=== PATIENT | female | born 1990 | race Caucasian/White ===

== ENCOUNTER 2018-06-23 14:45 | Emergency (ER) | payer OTHER, SELFPAY ==
[2018-06-23] MEDS ORDERED: NA CHLORIDE 0.9% 2,000 ML ONE (15:26)
[2018-06-23 15:32] LABS: Absolute Lymphocytes (CBC) 3.7 K/uL (0.7-4.9); Absolute Monocytes 0.4 K/uL (0.1-1.3); Absolute Neutrophil 6.1 K/uL (1.8-8.0); Basophils % 0.5 % (0-1.3); Eosinophils % 0.7 % (0-4.4); Lymphocytes % 35.8 % (15.3-44.8); MCV 96.7 fL (80-100); MPV 7.5 fL (7.6-11.3); Monocytes % 4.3 % (3.3-12.3); RBC Red Blood Cell Count 4.24 M/uL (3.86-4.86)
[2018-06-23 15:45] LABS: Protime INR 1.07
[2018-06-23 15:50] LABS: ALT/SGPT 25 U/L (12-78); AST/SGOT 14 U/L (15-37); Alkaline Phosphatase 75 U/L (45-117); BUN Blood Urea Nitrogen 9 mg/dL (7-18); Bicarbonate 26 mmol/L (21-32); Bilirubin Direct 0.1 mg/dL (0-0.2); Bilirubin Total 0.4 mg/dL (0.2-1.0); CKMB Creatine Kinase MB < 1.0 ng/mL (0.3-3.6); Creatine Phosphokinase 111 U/L (26-192); Glucose Level 85 mg/dL (74-106); Lipase 70 U/L (73-393); Magnesium 2.1 mg/dL (1.8-2.4); Potassium 3.8 mmol/L (3.5-5.1); Protein, Total 7.8 g/dL (6.4-8.2); Sodium Level 142 mmol/L (136-145); Troponin (Emerg Dept Use Only) < 0.02 ng/mL (0.0-0.045)
--- NOTE | 2018-06-23 17:24 | ER ---
Nurse's Notes [facility] Name: Ana Maria Robin Age: 27 yrs Sex: Female : 1990 Arrival Date: 06/23/2018 Time: 14:50 Bed 25 Private MD: Diagnosis: Syncope and collapse;Vomiting, unspecified;Diarrhea, unspecified Presentation: 06/23 14:51 Presenting complaint: EMS states: pt has been feeling ill for a few days with vomiting tl3 and diarrhea yesterday, went to work today started feeling dizzy and weak, had a syncopal episode, fell and hit head, + LOC for a few seconds, woke with headache, states it feels like it is behind her eyes, vomited once s/p incident. Transition of care: patient was not received from another setting of care. Onset of symptoms was June 20, 2018 at 15:00. Risk Assessment: Do you want to hurt yourself or someone else? Patient reports no desire to harm self or others. Initial Sepsis Screen: Does the patient meet any 2 criteria? No. Patient's initial sepsis screen is negative. Does the patient have a suspected source of infection? No. Patient's initial sepsis screen is negative. Care prior to arrival: IV initiated. 18 GA, in the right antecubital area. 14:51 Method Of Arrival: EMS: [facility] tl3 14:51 Acuity: HELADIO 3 tl3 Triage Assessment: 14:55 General: Appears uncomfortable, well groomed, well developed, well nourished, Behavior tl3 is calm, cooperative, appropriate for age. Pain: Complains of pain in Headache. EENT: Reports pain in behind eyes. Neuro: Level of Consciousness is awake, alert, obeys commands, Oriented to person, place, time, situation, Appropriate for age Reports dizziness, since yesterday weakness since yesterday. Cardiovascular: Patient's skin is warm and dry. Respiratory: Airway is patent Respiratory effort is even, unlabored, Respiratory pattern is regular, symmetrical. GI: Reports diarrhea, vomiting, since yesterday. : No signs and/or symptoms were reported regarding the genitourinary system. Derm: slight swelling above left eyebrow. 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 It has been more than one year since last vaccine. - Social history:: Smoking status: unknown. - Ebola Screening: : No symptoms or risks identified at this time. Screenin:59 Abuse screen: Denies threats or abuse. Nutritional screening: No deficits noted. tl3 Tuberculosis screening: No symptoms or risk factors identified. Fall Risk Fall in past 12 months (25 points). Assessment: 14:59 Reassessment: No changes from previously documented assessment. tl3 17:09 Reassessment: Patient appears in no apparent distress at this time. No changes from tl3 previously documented assessment. Patient and/or family updated on plan of care and expected duration. Pain level reassessed. Patient is alert, oriented x 3, equal unlabored respirations, skin warm/dry/pink. pt in no distress, unable to provide urine sample. 17:43 Reassessment: Patient appears in no apparent distress at this time. No changes from tl3 previously documented assessment. Patient and/or family updated on plan of care and expected duration. Pain level reassessed. Patient is alert, oriented x 3, equal unlabored respirations, skin warm/dry/pink. 17:45 Cardiovascular: Rhythm is regular. tl3 Vital Signs: 14:55 BP 126 / 82; Pulse 59; Resp 18; Temp 98.6(O); Pulse Ox 98% ; tl3 17:09 BP 119 / 83; Pulse 75; Resp 18; Pulse Ox 100% on R/A; tl3 17:43 BP 128 / 78; Pulse 59; Resp 18; Pulse Ox 100% on R/A; tl3 ED Course: 14:50 Patient arrived in ED. tl3 14:54 Triage completed. tl3 14:55 Arm band placed on right wrist. tl3 14:59 Patient has correct armband on for positive identification. Bed in low position. Call tl3 light in reach. Side rails up X 1. Pulse ox on. NIBP on. Warm blanket given. 14:59 No provider procedures requiring assistance completed. Inserted saline lock: 20 gauge tl3 in left antecubital area, using aseptic technique. Blood collected. Missed attempt(s): 20 gauge Bleeding controlled, band aid applied, catheter tip intact. 15:00 Lucero Durant FNP-C [facility]. snw 15:00 Shahzad Hogan MD is Attending Physician. snw 16:05 Nova Black, RN is Primary Nurse. tl3 17:43 IV discontinued, intact, bleeding controlled, No redness/swelling at site. Pressure tl3 dressing applied. Administered Medications: 15:24 Drug: NS 0.9% 2000 ml Route: IV; Rate: 1 bolus; Site: left antecubital; Delivery: tl3 Primary tubing; 17:44 Follow up: IV Status: Completed infusion; IV Intake: 2000ml tl3 Point of Care Testing: Blood Glucose: 14:30 Blood Glucose: 76 mg/dL; tl3 Ranges: Intake: 17:44 IV: 2000ml; Total: 2000ml. tl3 Outcome: 17:23 Discharge ordered by . snw 17:43 Discharged to home ambulatory. tl3 17:43 Condition: improved 17:43 Discharge instructions given to patient, Instructed on discharge instructions, medication usage, Demonstrated understanding of instructions, follow-up care, medications, Prescriptions given X 1. 17:46 Patient left the ED. tl3 Signatures: Lucero Durant FNP-C CEMENT AND CONCRETE PLANT WORKER-Csnw Nova Black, RN RN tl3
--- NOTE | 2018-06-23 17:24 | EDPHYS ---
Physician Documentation [facility] Name: Ana Maria Robin Age: 27 yrs Sex: Female : 1990 Arrival Date: 06/23/2018 Time: 14:50 Bed 25 Private MD: ED Physician Shahzad Hogan HPI: 06/23 17:21 This 27 yrs old Female presents to ER via EMS with complaints of Syncope. snw 17:21 The patient has experienced syncope, collapsed. Onset: The symptoms/episode snw began/occurred suddenly, today. Duration: This was a single episode, that lasted an unknown period of time. Context: the episode(s) was witnessed, by co-worker(s), occurred at work, occurred while the patient was standing, Just prior to the episode the patient experienced lightheadedness. Associated injury: The patient did not suffer any apparent associated injury. Associated signs and symptoms: The patient has no apparent associated signs or symptoms. Current symptoms: Currently, the patient is not experiencing any symptoms. It is unknown whether or not the patient has had similar symptoms in the past. It is unknown whether or not the patient has recently seen a physician. 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 It has been more than one year since last vaccine. - Social history:: Smoking status: unknown. - Ebola Screening: : No symptoms or risks identified at this time. ROS: 17:20 Eyes: Negative for injury, pain, redness, and discharge, ENT: Negative for injury, snw pain, and discharge, Neck: Negative for injury, pain, and swelling, Cardiovascular: Negative for chest pain, palpitations, and edema, Respiratory: Negative for shortness of breath, cough, wheezing, and pleuritic chest pain. 17:20 Back: Negative for injury and pain, : Negative for injury, bleeding, discharge, and swelling, MS/Extremity: Negative for injury and deformity, Skin: Negative for injury, rash, and discoloration, Neuro: Negative for headache, weakness, numbness, tingling, and seizure, Psych: Negative for depression, anxiety, suicide ideation, homicidal ideation, and hallucinations. 17:20 Constitutional: Positive for malaise, poor PO intake. 17:20 Abdomen/GI: Positive for nausea, vomiting, and diarrhea. Exam: 17:19 Constitutional: This is a well developed, well nourished patient who is awake, alert, snw and in no acute distress. Head/Face: Normocephalic, atraumatic. Eyes: Pupils equal round and reactive to light, extra-ocular motions intact. Lids and lashes normal. Conjunctiva and sclera are non-icteric and not injected. Cornea within normal limits. Periorbital areas with no swelling, redness, or edema. ENT: Nares patent. No nasal discharge, no septal abnormalities noted. Tympanic membranes are normal and external auditory canals are clear. Oropharynx with no redness, swelling, or masses, exudates, or evidence of obstruction, uvula midline. Mucous membranes moist. Neck: Trachea midline, no thyromegaly or masses palpated, and no cervical lymphadenopathy. Supple, full range of motion without nuchal rigidity, or vertebral point tenderness. No Meningismus. Chest/axilla: Normal chest wall appearance and motion. Nontender with no deformity. No lesions are appreciated. Cardiovascular: Regular rate and rhythm with a normal S1 and S2. No gallops, murmurs, or rubs. Normal PMI, no JVD. No pulse deficits. Respiratory: Lungs have equal breath sounds bilaterally, clear to auscultation and percussion. No rales, rhonchi or wheezes noted. No increased work of breathing, no retractions or nasal flaring. Abdomen/GI: Soft, non-tender, with hyperactive bowel sounds. No distension or tympany. No guarding or rebound. No evidence of tenderness throughout. Back: No spinal tenderness. No costovertebral tenderness. Full range of motion. Skin: Warm, dry with normal turgor. Normal color with no rashes, no lesions, and no evidence of cellulitis. MS/ Extremity: Pulses equal, no cyanosis. Neurovascular intact. Full, normal range of motion. Neuro: Awake and alert, GCS 15, oriented to person, place, time, and situation. Cranial nerves II-XII grossly intact. Motor strength 5/5 in all extremities. Sensory grossly intact. Cerebellar exam normal. Normal gait. Psych: Awake, alert, with orientation to person, place and time. Behavior, mood, and affect are within normal limits. Vital Signs: 14:55 BP 126 / 82; Pulse 59; Resp 18; Temp 98.6(O); Pulse Ox 98% ; tl3 17:09 BP 119 / 83; Pulse 75; Resp 18; Pulse Ox 100% on R/A; tl3 17:43 BP 128 / 78; Pulse 59; Resp 18; Pulse Ox 100% on R/A; tl3 MDM: 15:21 Patient medically screened. snw 17:24 Data reviewed: vital signs, nurses notes. Data interpreted: Pulse oximetry: on room air snw is 100 %. Interpretation: normal. Counseling: I had a detailed discussion with the patient and/or guardian regarding: the historical points, exam findings, and any diagnostic results supporting the discharge/admit diagnosis, lab results, the need for outpatient follow up, for definitive care, to return to the emergency department if symptoms worsen or persist or if there are any questions or concerns that arise at home. Special discussion: Based on the history and exam findings, there is no indication for further emergent testing or inpatient evaluation. I discussed with the patient/guardian the need to see the primary care provider for further evaluation of the symptoms. 06/23 15:01 Order name: Basic Metabolic Panel [facility] 06/23 15:01 Order name: CBC with Diff [facility] 06/23 15:01 Order name: Ckmb [facility] 06/23 15:01 Order name: CPK [facility] 06/23 15:01 Order name: Hepatic Function; Complete Time: 17:19 [facility] 06/23 15:01 Order name: Lipase; Complete Time: 17:19 [facility] 06/23 15:01 Order name: Magnesium; Complete Time: 17:19 [facility] 06/23 15:01 Order name: Protime (+inr); Complete Time: 17:19 [facility] 06/23 15:01 Order name: Ptt, Activated; Complete Time: 17:19 [facility] 06/23 15:01 Order name: Troponin (emerg Dept Use Only); Complete Time: 17:19 [facility] 06/23 15:02 Order name: Basic Metabolic Panel; Complete Time: 17:19 EDMS 06/23 15:02 Order name: CBC with Automated Diff; Complete Time: 15:40 EDMS 06/23 15:02 Order name: CKMB Creatine Kinase MB; Complete Time: 17:19 EDMS 06/23 15:03 Order name: Creatine Phosphokinase; Complete Time: 17:19 EDMS 06/23 15:01 Order name: EKG; Complete Time: 15:03 tl3 06/23 15:01 Order name: Cardiac monitoring; Complete Time: 15:24 tl3 06/23 15:01 Order name: EKG - Nurse/Tech; Complete Time: 15:24 tl3 06/23 15:01 Order name: IV Saline Lock; Complete Time: 15: tl3 06/23 15:01 Order name: Labs collected and sent; Complete Time: 15:01 tl3 06/23 15:01 Order name: NPO; Complete Time: 15:02 tl3 06/23 15:01 Order name: O2 Per Protocol; Complete Time: 15: 3 06/23 15:01 Order name: O2 Sat Monitoring; Complete Time: 15:01 tl3 Administered Medications: 15:24 Drug: NS 0.9% 2000 ml Route: IV; Rate: 1 bolus; Site: left antecubital; Delivery: tl3 Primary tubing; 17:44 Follow up: IV Status: Completed infusion; IV Intake: 2000ml tl3 Point of Care Testing: Blood Glucose: 14:30 Blood Glucose: 76 mg/dL; tl3 Ranges: Critical Glucose Levels:Adult <50 mg/dl or >400 mg/dl <40 mg/dl or >180 mg/dl Disposition: 18:18 Co-signature as Attending Physician, Shahzad Hogan MD I agree with the assessment and kdr plan of care. Disposition: 06/23/18 17:23 Discharged to Home. Impression: Syncope and collapse, Vomiting, unspecified, Diarrhea, unspecified. - Condition is Stable. - Discharge Instructions: Food Choices to Help Relieve Diarrhea, Adult, Diarrhea, Adult, Nausea and Vomiting, Adult, Syncope, Rehydration, Adult. - Prescriptions for Bentyl 20 mg Oral Tablet - take 1 tablet by ORAL route every 6 hours As needed; 20 tablet. - Work release form, Medication Reconciliation Form, Thank You Letter, Antibiotic Education, Prescription Opioid Use form. - Follow up: Private Physician; When: 2 - 3 days; Reason: Recheck today's complaints, Continuance of care, Re-evaluation by your physician. Follow up: Emergency Department; When: As needed; Reason: Worsening of condition. Signatures: Dispatcher [employer] EDShahzad Lopes MD MD [facility] Lucero Durant, RECEIVING AND PROCESSING SUPERVISOR-C RECEIVING AND PROCESSING SUPERVISOR-Csnw Nova Black, RN RN tl3 Corrections: (The following items were deleted from the chart) 17:46 17:23 06/23/2018 17:23 Discharged to Home. Impression: Syncope and collapse; Vomiting, tl3 unspecified; Diarrhea, unspecified. Condition is Stable. Forms are Medication Reconciliation Form, Thank You Letter, Antibiotic Education, Prescription Opioid Use. Follow up: Private Physician; When: 2 - 3 days; Reason: Recheck today's complaints, Continuance of care, Re-evaluation by your physician. Follow up: Emergency Department; When: As needed; Reason: Worsening of condition. snw
--- NOTE | 2018-06-24 06:08 | EKG ---
Test Date: 2018-06-23 Test Time: 15:12:58 Electroplating Worker: TL MEASUREMENT RESULTS: Intervals: Rate: 59 OR: 150 QRSD: 82 QT: 408 QTc: 403 Salix: P: 56 OR: 150 QRS: 32 T: -2 INTERPRETIVE STATEMENTS: Sinus bradycardia with sinus arrhythmia Otherwise normal ECG No previous ECG available for comparison Electronically Signed On 06-24-18 06:08:23 CAR BLOCKER by Vitor Lutz
== END 2018-06-23 17:46 | disposition home or self-care (01) ==
LOC: ER 14:45
DX: R55 Syncope and collapse (principal); R11.10 Vomiting, unspecified; R19.7 Diarrhea, unspecified; R00.1 Bradycardia, unspecified
CPT/HCPCS: 36415; 80048; 80076; 82550; 82553; 82962; 83690; 83735; 84484; 85025; 85610; 85730; 93005; 96360; 96361; 99284; J7030

== ENCOUNTER 2018-10-07 18:34 | Emergency (ER) | payer SELFPAY ==
--- OUTSIDE RECORDS SUMMARY | 2018-10-07 18:36 | XMS REPORT ---
:1990 Author Organization [facility] Address [address] [place] [address] Dr. Tran [address] [place] [id number] Care Team Providers Name Role Phone Unavailable Unavailable Unavailable Problems This patient has no known problems. Allergies, Adverse Reactions, Alerts This patient has no known allergies or adverse reactions. Medications This patient has no known medications.
[2018-10-07 20:35] LABS: Absolute Lymphocytes (CBC) 3.9 K/uL (0.7-4.9); Absolute Monocytes 0.7 K/uL (0.1-1.3); Absolute Neutrophil 7.9 K/uL (1.8-8.0); Basophils % 0.7 % (0-1.3); Eosinophils % 0.5 % (0-4.4); Hematocrit 39.3 % (36.0-45.0); Lymphocytes % 30.6 % (15.3-44.8); MPV 7.3 fL (7.6-11.3); Monocytes % 5.7 % (3.3-12.3); RBC Red Blood Cell Count 4.08 M/uL (3.86-4.86)
[2018-10-07] MEDS ORDERED: KETOROLAC 30 MG/ML INJ ONE (20:37)
[2018-10-07] MEDS ORDERED: NA CHLORIDE 0.9% 1,000 ML ONE (20:37)
[2018-10-07] MEDS ORDERED: ONDANSETRON 4 MG/2 ML VIAL ONE (20:37)
[2018-10-07 20:54] LABS: ALT/SGPT 22 U/L (12-78); AST/SGOT 11 U/L (15-37); Albumin 3.4 g/dL (3.4-5.0); Alkaline Phosphatase 73 U/L (45-117); BUN Blood Urea Nitrogen 14 mg/dL (7-18); Bicarbonate 24 mmol/L (21-32); Bilirubin Direct < 0.1 mg/dL (0-0.2); Bilirubin Total 0.3 mg/dL (0.2-1.0); Glucose Level 121 mg/dL (74-106); Lipase 55 U/L (73-393); Potassium 3.8 mmol/L (3.5-5.1); Protein, Total 7.1 g/dL (6.4-8.2); Sodium Level 142 mmol/L (136-145)
--- NOTE | 2018-10-07 21:01 | RAD REPORT ---
EXAM DESCRIPTION: CT - Stone Protocol - 10/07/2018 8:49 pm CLINICAL HISTORY: Flank pain. ABD PAIN COMPARISON: Abdomen Pelvis W Contrast dated 12/13/2016 TECHNIQUE: Axial images were obtained without oral or IV contrast. Lack of contrast limits solid org an and vascular assessment. The [id number] spans the entirety of the system partially obscuring uppermost abdomen and lung bases. Coronal reformatted images were obtained and reviewed. All CT scans are performed using dose optimization technique as appropriate and may include automated exposure control or mA/KV adjustment according to patient size. FINDINGS: The lower lung mendoza are clear. Imaged portions of the liver and spleen show no suspicious findings on non-contrast imaging. The panc reas and adrenal glands are normal. No pathologic lymphadenopathy in the abdomen or pelvis. Punctate calculus is present in the left kidney without hydronephrosis. Elsewhere, no significant sto ne or hydronephrosis identified. No bowel obstruction, free air, free fluid or abscess. Normal appendix noted. No significant bony abnormality. IMPRESSION: Punctate calculus mid pole left kidney without hydronephrosis.
[2018-10-07 21:52] LABS: Urine Blood TRACE (NEG); Urine Glucose NEGATIVE (NEG); Urine Protein NEGATIVE (NEG); Urine Specific Gravity 1.025 (1.005-1.030)
--- NOTE | 2018-10-07 22:07 | ER ---
Nurse's Notes [facility] Name: Ana Maria Robin Age: 28 yrs Sex: Female : 1990 Arrival Date: 10/07/2018 Time: 18:35 Bed 20 Private MD: Diagnosis: Low back pain;Lower abdominal pain, unspecified Presentation: 10/07 19:11 Presenting complaint: Patient states: right flank, right lower abd pain since midnight. ak1 Transition of care: patient was not received from another setting of care. Onset of symptoms was October 06, 2018. Risk Assessment: Do you want to hurt yourself or someone else? Patient reports no desire to harm self or others. Initial Sepsis Screen: Does the patient meet any 2 criteria? No. Patient's initial sepsis screen is negative. Does the patient have a suspected source of infection? No. Patient's initial sepsis screen is negative. Care prior to arrival: None. 19:11 Method Of Arrival: Ambulatory ak1 19:11 Acuity: HELADIO 3 ak1 Triage Assessment: 19:11 General: Appears in no apparent distress. Behavior is calm, cooperative. Pain: ak1 Complains of pain in posterior aspect of right lateral abdomen and right lower quadrant. EENT: No signs and/or symptoms were reported regarding the EENT system. Neuro: No deficits noted. Cardiovascular: No deficits noted. Respiratory: No deficits noted. GI: Abdomen is round non-distended. : Reports pain in right flank(s). Derm: No signs and/or symptoms reported regarding the dermatologic system. Musculoskeletal: No signs and/or symptoms reported regarding the musculoskeletal system. 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 - Social history:: Smoking status: Patient uses tobacco products, smokes one-half pack cigarettes per day. - Ebola Screening: : No symptoms or risks identified at this time. Screenin:44 Abuse screen: Denies threats or abuse. Nutritional screening: No deficits noted. tl2 Tuberculosis screening: No symptoms or risk factors identified. Fall Risk None identified. Assessment: 20:30 General: Appears in no apparent distress. uncomfortable, Behavior is calm, cooperative, tl2 appropriate for age, restless. Pain: Complains of pain in right flank Pain radiates to right lower quadrant Pain currently is 8 out of 10 on a pain scale. Quality of pain is described as sharp, Pain began 1 day ago. Neuro: Level of Consciousness is awake, alert, obeys commands, Oriented to person, place, time, situation. Cardiovascular: Denies chest pain. Respiratory: Airway is patent Respiratory effort is even, unlabored, Respiratory pattern is regular, symmetrical. GI: Bowel sounds present X 4 quads. Abd is soft and non tender Reports nausea. : Reports pain in right flank(s), lower quadrant(s) Denies burning with urination, urinary frequency, urgency. Derm: Skin is pink, warm \T\ dry. 21:41 Reassessment: Patient appears in no apparent distress at this time. Patient and/or tl2 family updated on plan of care and expected duration. Pain level reassessed. Patient is alert, oriented x 3, equal unlabored respirations, skin warm/dry/pink. Patient states feeling better. 22:23 Reassessment: Patient appears in no apparent distress at this time. Patient and/or tl2 family updated on plan of care and expected duration. Pain level reassessed. Patient is alert, oriented x 3, equal unlabored respirations, skin warm/dry/pink. pt verbalized understanding of discharge instructions, need for follow up and prescription usage Patient states feeling better. Vital Signs: 19:10 BP 137 / 91; Pulse 99; Resp 16; Temp 97.9(TE); Pulse Ox 99% on R/A; Weight 108.86 kg ak1 (R); Height 5 ft. 6 in. (167.64 cm) (R); Pain 9/10; 21:41 BP 100 / 63; Pulse 73; Resp 18; Pulse Ox 99% on R/A; tl2 22:23 BP 100 / 67; Pulse 72; Resp 18; Pulse Ox 99% on R/A; tl2 19:10 Body Mass Index 38.74 (108.86 kg, 167.64 cm) ak1 ED Course: 18:35 Patient arrived in ED. as 19:11 Triage completed. ak1 19:11 Arm band placed on Patient placed in waiting room. ak1 19:57 Norris Adkins MD is Attending Physician. tw4 20:07 Neisha Abraham RN is Primary Nurse. tl2 20:20 Inserted saline lock: 22 gauge in right antecubital area, using aseptic technique. tl2 Blood collected. 20:44 Patient has correct armband on for positive identification. Placed in gown. Bed in low tl2 position. Call light in reach. Side rails up X 1. 20:49 CT Stone Protocol In Process Unspecified. EDMS 20:50 CT completed. Patient tolerated procedure well. Patient moved back from CT. kw1 22:23 No provider procedures requiring assistance completed. tl2 22:25 IV discontinued, intact, bleeding controlled, No redness/swelling at site. Pressure tl2 dressing applied. Administered Medications: 20:32 Drug: Zofran 4 mg Route: IVP; Site: right antecubital; tl2 21:00 Follow up: Response: No adverse reaction tl2 20:32 Drug: TORadol 30 mg Route: IVP; Site: right antecubital; tl2 21:00 Follow up: Response: No adverse reaction; Pain is decreased tl2 20:33 Drug: NS 0.9% 1000 ml Route: IV; Rate: 1 bolus; Site: right antecubital; tl2 22:26 Follow up: IV Status: Completed infusion; IV Intake: 500ml tl2 Intake: 22:26 IV: 500ml; Total: 500ml. tl2 Outcome: 22:06 Discharge ordered by . tw4 22:25 Discharged to home ambulatory, with family. tl2 22:25 Condition: stable 22:25 Discharge instructions given to patient, family, Instructed on discharge instructions, follow up and referral plans. medication usage, Demonstrated understanding of instructions, follow-up care, medications, Prescriptions given X 1. 22:27 Patient left the ED. tl2 Signatures: Dispatcher [employer] EDMS Marylou Jenkins Amber RN RN ak1 Neisha Abraham RN RN tl2 Julia Navarrete kw1 Norris Adkins MD MD tw4 Corrections: (The following items were deleted from the chart) 22:25 20:30 Inserted saline lock: 22 gauge in right antecubital area, using aseptic tl2 technique. Blood collected. tl2
--- NOTE | 2018-10-07 22:07 | EDPHYS ---
Physician Documentation [facility] Name: Ana Maria Robin Age: 28 yrs Sex: Female : 1990 Arrival Date: 10/07/2018 Time: 18:35 Bed 20 Private MD: ED Physician Norris Adkins HPI: 10/07 22:00 This 28 yrs old Female presents to ER via Ambulatory with complaints of tw4 Abdominal Pain, Back Pain. 22:00 The patient presents with pain that is acute. The symptoms are located in the low back. tw4 Onset: The symptoms/episode began/occurred today. The pain does not radiate. Associated signs and symptoms: The patient has no apparent associated signs or symptoms. The problem was sustained from unknown cause. Modifying factors: The patient symptoms are alleviated by nothing, the patient symptoms are aggravated by any movement. The patient has not experienced similar symptoms in the past. 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 - Social history:: Smoking status: Patient uses tobacco products, smokes one-half pack cigarettes per day. - Ebola Screening: : No symptoms or risks identified at this time. ROS: 22:00 Constitutional: Negative for fever, chills, and weight loss, Eyes: Negative for injury, tw4 pain, redness, and discharge, Cardiovascular: Negative for chest pain, palpitations, and edema, Respiratory: Negative for shortness of breath, cough, wheezing, and pleuritic chest pain, MS/Extremity: Negative for injury and deformity, Skin: Negative for injury, rash, and discoloration, Neuro: Negative for headache, weakness, numbness, tingling, and seizure. 22:00 Abdomen/GI: Positive for abdominal pain, Negative for nausea and vomiting, nausea, vomiting, and diarrhea, nausea, constipation, abdominal cramps, abdominal distension. Exam: 22:00 Constitutional: This is a well developed, well nourished patient who is awake, alert, tw4 and in no acute distress. Head/Face: Normocephalic, atraumatic. Chest/axilla: Normal chest wall appearance and motion. Nontender with no deformity. No lesions are appreciated. Cardiovascular: Regular rate and rhythm with a normal S1 and S2. No gallops, murmurs, or rubs. Normal PMI, no JVD. No pulse deficits. Respiratory: Lungs have equal breath sounds bilaterally, clear to auscultation and percussion. No rales, rhonchi or wheezes noted. No increased work of breathing, no retractions or nasal flaring. Abdomen/GI: Soft, non-tender, with normal bowel sounds. No distension or tympany. No guarding or rebound. No evidence of tenderness throughout. Back: No spinal tenderness. No costovertebral tenderness. Full range of motion. MS/ Extremity: Pulses equal, no cyanosis. Neurovascular intact. Full, normal range of motion. Neuro: Awake and alert, GCS 15, oriented to person, place, time, and situation. Cranial nerves II-XII grossly intact. Motor strength 5/5 in all extremities. Sensory grossly intact. Cerebellar exam normal. Normal gait. Vital Signs: 19:10 BP 137 / 91; Pulse 99; Resp 16; Temp 97.9(TE); Pulse Ox 99% on R/A; Weight 108.86 kg ak1 (R); Height 5 ft. 6 in. (167.64 cm) (R); Pain 9/10; 21:41 BP 100 / 63; Pulse 73; Resp 18; Pulse Ox 99% on R/A; tl2 22:23 BP 100 / 67; Pulse 72; Resp 18; Pulse Ox 99% on R/A; tl2 19:10 Body Mass Index 38.74 (108.86 kg, 167.64 cm) ak1 MDM: 19:58 Patient medically screened. tw4 22:00 Differential diagnosis: chronic back pain, Pyelonephritis. Data reviewed: vital signs, tw4 nurses notes. Counseling: I had a detailed discussion with the patient and/or guardian regarding: the historical points, exam findings, and any diagnostic results supporting the discharge/admit diagnosis. Medication response: Toradol relieved patient's pain. The symptoms have resolved. Response to treatment: the patient's symptoms have resolved after treatment, and as a result, I will discharge patient. Special discussion: I discussed with the patient/guardian in detail that at this point there is no indication for admission to the hospital. It is understood, however, that if the symptoms persist or worsen the patient needs to return immediately for re-evaluation. 10/07 19:58 Order name: Basic Metabolic Panel; Complete Time: 21:36 [facility] 10/07 21:36 Interpretation: Normal except: GLUC 121; CL 111. [facility] 10/07 19:58 Order name: CBC with Diff; Complete Time: 21:37 [facility] 10/07 21:37 Interpretation: Normal except: WBC 12.6; MPV 7.3. [facility] 10/07 19:58 Order name: Creatinine for Radiology [facility] 10/07 19:58 Order name: Hepatic Function; Complete Time: 21:37 [facility] 10/07 21:37 Interpretation: Normal except: AST 11; A/G 0.9; GLOB 3.7. [facility] 10/07 19:58 Order name: Lipase; Complete Time: 21:38 [facility] 10/07 20:35 Order name: Urine Dipstick--Ancillary (enter results) 10/07 19:58 Order name: IV Saline Lock; Complete Time: 20:25 [facility] 10/07 19:58 Order name: Labs collected and sent; Complete Time: 20:25 [facility] 10/07 19:58 Order name: Urine Dipstick-Ancillary (obtain specimen); Complete Time: 20:25 [facility] 10/07 20:21 Order name: CT Stone Protocol; Complete Time: 21:56 [facility] 10/07 20:35 Order name: Urine --Ancillary (enter results) 10/07 19:58 Order name: Urine Test (obtain specimen); Complete Time: 20:25 tw4 Administered Medications: 20:32 Drug: Zofran 4 mg Route: IVP; Site: right antecubital; tl2 21:00 Follow up: Response: No adverse reaction tl2 20:32 Drug: TORadol 30 mg Route: IVP; Site: right antecubital; tl2 21:00 Follow up: Response: No adverse reaction; Pain is decreased tl2 20:33 Drug: NS 0.9% 1000 ml Route: IV; Rate: 1 bolus; Site: right antecubital; tl2 22:26 Follow up: IV Status: Completed infusion; IV Intake: 500ml tl2 Disposition: 10/07/18 22:06 Discharged to Home. Impression: Low back pain, Lower abdominal pain, unspecified. - Condition is Stable. - Discharge Instructions: Abdominal Pain, Adult, Flank Pain, Adult, Pain Without a Known Cause. - Prescriptions for Ibuprofen 800 mg Oral Tablet - take 1 tablet by ORAL route every 8 hours As needed take with food; 30 tablet. - Medication Reconciliation Form, Thank You Letter, Antibiotic Education, Prescription Opioid Use form. - Follow up: Private Physician; When: Upon discharge from the Emergency Department; Reason: If symptoms return, Recheck today's complaints, Continuance of care. - Problem is new. - Symptoms have improved. Signatures: Dispatcher [employer] EDMS Maria Del Carmen Mcwilliams RN RN ak1 Neisha Abraham RN RN tl2 Norris Adkins MD MD tw4 Corrections: (The following items were deleted from the chart) 22:27 22:06 10/07/2018 22:06 Discharged to Home. Impression: Low back pain; Lower abdominal tl2 pain, unspecified. Condition is Stable. Forms are Medication Reconciliation Form, Thank You Letter, Antibiotic Education, Prescription Opioid Use. Follow up: Private Physician; When: Upon discharge from the Emergency Department; Reason: If symptoms return, Recheck today's complaints, Continuance of care. Problem is new. Symptoms have improved. tw4
== END 2018-10-07 22:27 | disposition home or self-care (01) ==
LOC: ER 18:34
DX: R10.30 Lower abdominal pain, unspecified (principal); F17.210 Nicotine dependence, cigarettes, uncomplicated; Z88.0 Allergy status to penicillin; Z88.2 Allergy status to sulfonamides; Z88.8 Allergy status to other drugs, medicaments and biological substances
CPT/HCPCS: 36415; 74176; 76377; 80048; 80076; 81003; 81025; 83690; 85025; 96361; 96374; 96375; 99284; J2405; J7030

== ENCOUNTER 2018-11-21 17:54 | Emergency (ER) | payer BC, SELFPAY ==
--- OUTSIDE RECORDS SUMMARY | 2018-11-21 17:56 | XMS REPORT ---
:1990 [facility] [address] [place] [address] Dr. Tran [address] [place] [id number] Care Team Providers Name Role Phone Unavailable Unavailable Unavailable Problems This patient has no known problems. Allergies, Adverse Reactions, Alerts This patient has no known allergies or adverse reactions. Medications This patient has no known medications.
[2018-11-21] MEDS ORDERED: ONDANSETRON 4 MG (ODT) TAB ONE (18:43)
--- NOTE | 2018-11-21 19:29 | EDPHYS ---
Physician Documentation [facility] Name: Ana Maria Robin Age: 28 yrs Sex: Female : 1990 Arrival Date: 11/21/2018 Time: 18:02 Bed DIS1 Private MD: ED Physician Triston Rider HPI: 11/21 18:35 This 28 yrs old Female presents to ER via Ambulatory with complaints of cp Vomiting, Fever. 18:35 The patient presents to the emergency department with nausea, that is moderate, cp vomiting, that is intermittent. 18:35 Onset: The symptoms/episode began/occurred 2 day(s) ago. Possible causes: sick cp contacts, son presents to ED with similar symptoms. Associated signs and symptoms: Pertinent positives: fever, sore throat, cough, Pertinent negatives: abdominal pain, anorexia, constipation, diarrhea. Severity of symptoms: in the emergency department the symptoms are unchanged despite home interventions. Historical: - Allergies: 18:07 Labetalol; hb 18:07 PENICILLINS; hb 18:07 Sulfa (Sulfonamide Antibiotics); hb - PMHx: 18:07 Depression; hb - PSHx: 18:07 ; hb - Immunization history:: Adult Immunizations up to date. - Social history:: Smoking status: Patient uses tobacco products, smokes one-half pack cigarettes per day. - Ebola Screening: : No symptoms or risks identified at this time. ROS: 18:45 Constitutional: Negative for body aches, fever, poor PO intake. cp 18:45 Eyes: Negative for injury, pain, redness, and discharge. cp 18:45 ENT: Positive for sore throat, Negative for drainage from ear(s), ear pain, difficulty cp swallowing, difficulty handling secretions. 18:45 Cardiovascular: Negative for chest pain, palpitations. 18:45 Respiratory: Positive for cough, Negative for wheezing. 18:45 Abdomen/GI: Positive for nausea, vomiting, Negative for abdominal pain, diarrhea, constipation, anorexia. 18:45 : Negative for urinary symptoms. 18:45 Skin: Negative for rash. 18:45 Neuro: Negative for dizziness, headache. 18:45 All other systems are negative. Exam: 18:50 Constitutional: The patient appears in no acute distress, alert, awake, non-toxic, well cp developed, well nourished. 18:50 Head/Face: Normocephalic, atraumatic. cp 18:50 Eyes: Periorbital structures: appear normal, Conjunctiva: normal, no exudate, no cp injection, Sclera: no appreciated abnormality, Lids and lashes: appear normal, bilaterally. 18:50 ENT: External ear(s): are unremarkable, Ear canal(s): are normal, clear, TM's: bulging, is not appreciated, bilaterally, dullness, bilaterally, erythema, is not appreciated, bilaterally, Nose: is normal, Mouth: Lips: moist, Oral mucosa: moist, Posterior pharynx: Airway: no evidence of obstruction, patent, Tonsils: no enlargement, no exudate, erythema, that is mild, exudate, is not appreciated. 18:50 Neck: ROM/movement: is normal, is supple, no meningismus, no nuchal rigidity, Lymph nodes: no appreciated lymphadenopathy. 18:50 Chest/axilla: Inspection: normal. 18:50 Cardiovascular: Rate: normal. 18:50 Respiratory: the patient does not display signs of respiratory distress, Respirations: cp normal, no use of accessory muscles, no retractions, no splinting, no tachypnea, labored breathing, is not present, Breath sounds: are clear throughout, no decreased breath sounds, no stridor, no wheezing. 18:50 Abdomen/GI: Inspection: abdomen appears normal, Palpation: abdomen is soft and non-tender, in all quadrants. Vital Signs: 18:07 BP 150 / 84; Pulse 88; Resp 16; Temp 97.9; Pulse Ox 100% on R/A; Pain 7/10; hb MDM: 18:20 Patient medically screened. cp 19:00 Differential diagnosis: gastritis, viral gastroenteritis, gastroenteritis, influenza, cp strep, dehydration. 19:27 Data reviewed: vital signs, nurses notes, lab test result(s), and as a result, I will cp discharge patient. 19:27 Counseling: I had a detailed discussion with the patient and/or guardian regarding: the cp historical points, exam findings, and any diagnostic results supporting the discharge/admit diagnosis, lab results, to return to the emergency department if symptoms worsen or persist or if there are any questions or concerns that arise at home. Response to treatment: the patient's symptoms have mildly improved after treatment, VSS. Nausea improved and vomiting resolved. Will discharge to home for continued monitoring. 11/21 18:29 Order name: Strep; Complete Time: 19:11 11/21 19:11 Interpretation: Reviewed. 11/21 18:29 Order name: Influenza Screen (a \T\ B); Complete Time: 19:11 cp 11/21 19:11 Interpretation: Reviewed. 11/21 19:03 Order name: Throat Culture EDLA 11/21 19:03 Order name: PO challenge; Complete Time: 19:18 cp Administered Medications: 18:38 Drug: Zofran 4 mg Route: PO; hb 19:04 Follow up: Response: No adverse reaction; Nausea is decreased hb 19:46 Follow up: Response: No adverse reaction; Nausea is decreased ss Disposition: 11/21/18 19:28 Discharged to Home. Impression: Nausea and vomiting, Diarrhea, unspecified, Acute pharyngitis. - Condition is Stable. - Discharge Instructions: Food Choices to Help Relieve Diarrhea, Adult, Diarrhea, Adult, Nausea and Vomiting, Adult, Pharyngitis, [id number]. - Prescriptions for Zofran 4 mg Oral Tablet - take 1 tablet by ORAL route every 12 hours As needed; 20 tablet. Phenergan 25 mg Rectal Suppository - insert 1 suppository by RECTAL route every 6 hours As needed; 12 suppository. - Work release form, Medication Reconciliation Form, Thank You Letter, Antibiotic Education, Prescription Opioid Use form. - Follow up: Private Physician; When: 1 - 2 days; Reason: Worsening of condition. - Problem is new. - Symptoms have improved. Signatures: Dispatcher [employer] [facility] Fernanda Singh RN RN Triston Mckinney PA PA Heather De Jesus RN RN Corrections: (The following items were deleted from the chart) 19:50 19:28 11/21/2018 19:28 Discharged to Home. Impression: Nausea and vomiting; Diarrhea, ss unspecified; Acute pharyngitis. Condition is Stable. Forms are Medication Reconciliation Form, Thank You Letter, Antibiotic Education, Prescription Opioid Use. Follow up: Private Physician; When: 1 - 2 days; Reason: Worsening of condition. Problem is new. Symptoms have improved. cp
--- NOTE | 2018-11-21 19:29 | ER ---
Nurse's Notes [facility] Name: Ana Maria Robin Age: 28 yrs Sex: Female : 1990 Arrival Date: 11/21/2018 Time: 18:02 Bed DIS1 Private MD: Diagnosis: Nausea and vomiting;Diarrhea, unspecified;Acute pharyngitis Presentation: 11/21 18:06 Presenting complaint: N/V/D, fever, and sore throat x 2 days. TMAX 100.4. Transition of hb care: patient was not received from another setting of care. Onset of symptoms was November 20, 2018. Risk Assessment: Do you want to hurt yourself or someone else? Patient reports no desire to harm self or others. Care prior to arrival: None. 18:06 Method Of Arrival: Ambulatory hb 18:06 Acuity: HELADIO 4 hb 19:49 Initial Sepsis Screen: Does the patient meet any 2 criteria? No. Patient's initial ss sepsis screen is negative. Does the patient have a suspected source of infection? No. Patient's initial sepsis screen is negative. Triage Assessment: 18:07 General: Appears in no apparent distress. Behavior is calm, cooperative. Pain: Pain hb currently is 7 out of 10 on a pain scale. EENT: Throat is reddened has enlarged tonsils bilaterally Reports sore throat. Neuro: Level of Consciousness is awake, alert, obeys commands, Oriented to person, place, time, situation. Cardiovascular: Capillary refill < 3 seconds Patient's skin is warm and dry. Respiratory: Airway is patent Respiratory effort is even, unlabored, Respiratory pattern is regular, symmetrical. GI: Reports diarrhea, nausea, vomiting. : No signs and/or symptoms were reported regarding the genitourinary system. Derm: Skin is intact, is healthy with good turgor. Musculoskeletal: No signs and/or symptoms reported regarding the musculoskeletal system. Historical: - Allergies: 18:07 Labetalol; hb 18:07 PENICILLINS; hb 18:07 Sulfa (Sulfonamide Antibiotics); hb - PMHx: 18:07 Depression; hb - PSHx: 18:07 ; hb - Immunization history:: Adult Immunizations up to date. - Social history:: Smoking status: Patient uses tobacco products, smokes one-half pack cigarettes per day. - Ebola Screening: : No symptoms or risks identified at this time. Screenin:10 Abuse screen: Denies threats or abuse. Denies injuries from another. Nutritional hb screening: No deficits noted. Tuberculosis screening: No symptoms or risk factors identified. Fall Risk None identified. Assessment: 18:10 General: see triage assessment. hb 19:47 Reassessment: Patient appears in no apparent distress at this time. Patient is alert, ss oriented x 3, equal unlabored respirations, skin warm/dry/pink. PO challenge tolerated with water and sprite. Vital Signs: 18:07 BP 150 / 84; Pulse 88; Resp 16; Temp 97.9; Pulse Ox 100% on R/A; Pain 7/10; hb ED Course: 18:02 Patient arrived in ED. mr 18:07 Triage completed. hb 18:07 Arm band placed on. hb 18:10 Patient has correct armband on for positive identification. Call light in reach. hb 18:11 Triston Patrick PA is PHCP. cp 18:11 Triston Rider MD is Attending Physician. cp 18:38 Heather De Jesus, AVIS is Primary Nurse. hb 19:48 No provider procedures requiring assistance completed. Patient did not have IV access ss during this emergency room visit. Administered Medications: 18:38 Drug: Zofran 4 mg Route: PO; hb 19:04 Follow up: Response: No adverse reaction; Nausea is decreased hb 19:46 Follow up: Response: No adverse reaction; Nausea is decreased ss Outcome: 19:28 Discharge ordered by MD. cp 19:48 Discharged to home ambulatory. ss 19:48 Condition: good 19:48 Discharge instructions given to patient, family, Instructed on discharge instructions, follow up and referral plans. medication usage, Demonstrated understanding of instructions, follow-up care, medications, Prescriptions given X 2. 19:50 Patient left the ED. ss Signatures: Herber Gertrude johnson Fernanda Singh RN RN Triston Patrick PA PA cp Baxter, Heather, AVIS RN hb
== END 2018-11-21 19:50 | disposition home or self-care (01) ==
LOC: ER 17:54
DX: J02.9 Acute pharyngitis, unspecified (principal); R11.2 Nausea with vomiting, unspecified; R19.7 Diarrhea, unspecified; F17.210 Nicotine dependence, cigarettes, uncomplicated; Z88.0 Allergy status to penicillin; Z88.2 Allergy status to sulfonamides; Z88.8 Allergy status to other drugs, medicaments and biological substances
CPT/HCPCS: 87070; 87081; 87804; 99283

== ENCOUNTER 2019-03-15 04:02 | Emergency (ER) | payer BC ==
--- OUTSIDE RECORDS SUMMARY | 2019-03-15 04:05 | XMS REPORT ---
:1990 [facility] Address [address] [place] [address] Dr. Tran [address] [place] [id number] Care Team Providers Name Role Phone Unavailable Unavailable Unavailable Problems This patient has no known problems. Allergies, Adverse Reactions, Alerts This patient has no known allergies or adverse reactions. Medications This patient has no known medications.
--- NOTE | 2019-03-15 04:56 | ER ---
Nurse's Notes [facility] Name: Ana Maria Robin Age: 28 yrs Sex: Female : 1990 Arrival Date: 03/15/2019 Time: 04:05 Bed 6 Private MD: Diagnosis: Encounter for general adult medical examination without abnormal findings Presentation: 03/15 04:15 Presenting complaint: Patient states: Pain to tooth to right upper side of mouth; lp1 radiating pain to right ear; States appt with dentist on Monday but pain severe this morning. Transition of care: patient was not received from another setting of care. 04:15 Method Of Arrival: Ambulatory lp1 04:15 Onset of symptoms was March 15, 2019. Risk Assessment: Do you want to hurt yourself or lp1 someone else? Patient reports no desire to harm self or others. Initial Sepsis Screen: Does the patient meet any 2 criteria? No. Patient's initial sepsis screen is negative. Does the patient have a suspected source of infection? No. Patient's initial sepsis screen is negative. Care prior to arrival: None. 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 - Social history:: Smoking status: Patient uses tobacco products, smokes one pack cigarettes per day. - Ebola Screening: : No symptoms or risks identified at this time. Screenin:43 Abuse screen: Denies threats or abuse. Denies injuries from another. Nutritional lp1 screening: No deficits noted. Tuberculosis screening: No symptoms or risk factors identified. Fall Risk None identified. Assessment: 04:42 General: Appears uncomfortable, Behavior is appropriate for age. Pain: Complains of lp1 pain in upper right third molar Pain currently is 10 out of 10 on a pain scale. Quality of pain is described as shooting, stabbing. Neuro: No deficits noted. Cardiovascular: No deficits noted. Respiratory: No deficits noted. GI: No deficits noted. : No deficits noted. EENT: Reports pain in mouth. Derm: Skin is pink, warm \T\ dry. Musculoskeletal: No deficits noted. Vital Signs: 04:15 BP 117 / 63; Pulse 99; Resp 18; Temp 98.4(O); Pulse Ox 99% on R/A; Weight 108.86 kg; lp1 Height 5 ft. 6 in. (167.64 cm); Pain 10/10; 04:15 Body Mass Index 38.74 (108.86 kg, 167.64 cm) lp1 ED Course: 04:05 Patient arrived in ED. ds1 04:12 Norris Adkins MD is Attending Physician. tw4 04:15 Arm band placed on. lp1 04:39 Yahaira Cerna, RN is Primary Nurse. lp1 04:40 Triage completed. lp1 04:43 Patient has correct armband on for positive identification. lp1 04:43 No provider procedures requiring assistance completed. Patient did not have IV access lp1 during this emergency room visit. Administered Medications: No medications were administered Outcome: 04:43 Medical screen evaluation completed per provider. Patient declined treatment. lp1 04:43 Condition: stable 04:43 Discharge instructions given to patient, Instructed on follow up and referral plans. lp1 04:54 Discharge ordered by . tw4 04:55 Patient left the ED. lp1 Signatures: Ariana Hager ds1 Yahaira Cerna, RN RN lp1 Norris Adkins MD MD tw4
--- NOTE | 2019-03-15 04:57 | EDPHYS ---
Physician Documentation [facility] Name: Ana Maria Robin Age: 28 yrs Sex: Female : 1990 Arrival Date: 03/15/2019 Time: 04:05 Bed 6 Private MD: ED Physician Norris Adkins HPI: 03/15 04:35 This 28 yrs old Female presents to ER via Unassigned with complaints of tw4 Toothache. 04:35 The patient presents with broken tooth/teeth. The problem is located in the upper right tw4 third molar. Onset: The symptoms/episode began/occurred yesterday. Duration: The symptoms are continuous, and are steadily getting worse. Modifying factors: The symptoms are alleviated by nothing, the symptoms are aggravated by nothing. Severity of symptoms: At their worst the symptoms were moderate, in the emergency department the symptoms. The patient has not experienced similar symptoms in the past. 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 - Social history:: Smoking status: Patient uses tobacco products, smokes one pack cigarettes per day. - Ebola Screening: : No symptoms or risks identified at this time. ROS: 04:35 Constitutional: Negative for fever, chills, and weight loss, Eyes: Negative for injury, tw4 pain, redness, and discharge, Cardiovascular: Negative for chest pain, palpitations, and edema, Respiratory: Negative for shortness of breath, cough, wheezing, and pleuritic chest pain, Abdomen/GI: Negative for abdominal pain, nausea, vomiting, diarrhea, and constipation. 04:35 ENT: Positive for dental pain, Negative for foreign body sensation, Gum pain hearing loss, pulling at ears, nasal discharge, rhinorrhea, sinus congestion. Exam: 04:35 Constitutional: This is a well developed, well nourished patient who is awake, alert, tw4 and in no acute distress. Head/Face: Normocephalic, atraumatic. Chest/axilla: Normal chest wall appearance and motion. Nontender with no deformity. No lesions are appreciated. Cardiovascular: Regular rate and rhythm with a normal S1 and S2. No gallops, murmurs, or rubs. Normal PMI, no JVD. No pulse deficits. Respiratory: Lungs have equal breath sounds bilaterally, clear to auscultation and percussion. No rales, rhonchi or wheezes noted. No increased work of breathing, no retractions or nasal flaring. Abdomen/GI: Soft, non-tender, with normal bowel sounds. No distension or tympany. No guarding or rebound. No evidence of tenderness throughout. 04:35 ENT: Dental exam: fractured teeth are noted. Vital Signs: 04:15 BP 117 / 63; Pulse 99; Resp 18; Temp 98.4(O); Pulse Ox 99% on R/A; Weight 108.86 kg; lp1 Height 5 ft. 6 in. (167.64 cm); Pain 10/10; 04:15 Body Mass Index 38.74 (108.86 kg, 167.64 cm) lp1 MDM: 04:12 Patient medically screened. tw4 04:52 Differential diagnosis: dental caries. Data reviewed: vital signs, nurses notes. tw4 Counseling: I had a detailed discussion with the patient and/or guardian regarding: the historical points, exam findings, and any diagnostic results supporting the discharge/admit diagnosis. Medical screen evaluation completed. EMTALA emergency medical condition absent. ED course: medical screen exam complete. Administered Medications: No medications were administered Disposition: 03/15/19 04:54 Discharged to Home. Impression: Encounter for general adult medical examination without abnormal findings. - Condition is Stable. - Discharge Instructions: Medical Screening Exam. - Medication Reconciliation Form, Thank You Letter, Antibiotic Education, Prescription Opioid Use form. - Follow up: Private Physician; When: Upon discharge from the Emergency Department; Reason: If symptoms return, Recheck today's complaints, Continuance of care. - Problem is new. - Symptoms have improved. Signatures: Yahaira Cerna RN RN lp1 Norris Adkins MD MD tw4 Corrections: (The following items were deleted from the chart) 04:55 04:54 03/15/2019 04:54 Discharged to Home. Impression: Encounter for general adult lp1 medical examination without abnormal findings. Condition is Stable. Forms are Medication Reconciliation Form, Thank You Letter, Antibiotic Education, Prescription Opioid Use. Follow up: Private Physician; When: Upon discharge from the Emergency Department; Reason: If symptoms return, Recheck today's complaints, Continuance of care. Problem is new. Symptoms have improved. tw4
== END 2019-03-15 04:55 | disposition home or self-care (01) ==
LOC: ER 04:02
DX: Z00.00 Encounter for general adult medical examination without abnormal findings (principal); F17.210 Nicotine dependence, cigarettes, uncomplicated; Z88.0 Allergy status to penicillin; Z88.1 Allergy status to other antibiotic agents; Z88.2 Allergy status to sulfonamides; Z88.8 Allergy status to other drugs, medicaments and biological substances
CPT/HCPCS: 99281

== ENCOUNTER 2019-08-25 22:13 | Emergency (ER) | payer BC ==
--- OUTSIDE RECORDS SUMMARY | 2019-08-25 22:15 | XMS REPORT ---
:1990 [facility] Address [address] [place] [address] Dr. Tran [address] [place] [id number] Care Team Providers Name Role Phone Unavailable Unavailable Unavailable Problems This patient has no known problems. Allergies, Adverse Reactions, Alerts This patient has no known allergies or adverse reactions. Medications This patient has no known medications.
[2019-08-25] MEDS ORDERED: dexAMETHasone 10 MG/ML VIAL ONE (23:43)
[2019-08-25] MEDS ORDERED: MEPERIDINE HCL 25 MG/0.5 ML ONE (23:43)
[2019-08-25] MEDS ORDERED: NA CHLORIDE 0.9% 1,000 ML ONE (23:44)
[2019-08-25] MEDS ORDERED: METOCLOPRAMIDE 10 MG/2mL INJ ONE (23:44)
[2019-08-26 00:19] LABS: Urine Blood NEGATIVE (NEG); Urine Glucose NEGATIVE (NEG); Urine Protein NEGATIVE (NEG); Urine Specific Gravity >1.030 (1.005-1.030); Urine pH 5.5 (5.0-7.0)
[2019-08-26 00:29] LABS: BUN Blood Urea Nitrogen 9 mg/dL (7-18); Bicarbonate 27 mmol/L (21-32); Glucose Level 92 mg/dL (74-106); Potassium 3.8 mmol/L (3.5-5.1); Sodium Level 141 mmol/L (136-145)
[2019-08-26 00:32] LABS: Urine Bacteria 20-50 /HPF (<20); Urine Culture Reflex Order REFLEXED; Urine RBC <5 /HPF (NONE SEEN)
--- NOTE | 2019-08-26 01:15 | ER ---
Nurse's Notes [facility] Name: Ana Maria Robin Age: 29 yrs Sex: Female : 1990 Arrival Date: 08/25/2019 Time: 22:14 Bed 18 Private MD: Diagnosis: Migraine Presentation: 08/25 22:21 Presenting complaint: Patient states: i have headache for a week now. throbbing rv headache, and two hours ago my right side of the face feels numb. Transition of care: patient was not received from another setting of care. Onset of symptoms was August 25, 2019 at 20:15. Risk Assessment: Do you want to hurt yourself or someone else? Patient reports no desire to harm self or others. Initial Sepsis Screen: Does the patient meet any 2 criteria? No. Patient's initial sepsis screen is negative. Does the patient have a suspected source of infection? No. Patient's initial sepsis screen is negative. Care prior to arrival: None. 22:21 Method Of Arrival: Ambulatory rv 22:21 Acuity: HELADIO 3 rv Triage Assessment: 23:00 Headache History: The patient has had previous headaches and this one is similar to previous episodes. 23:00 Pain: Also complains of no other associated symptoms. 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 - Coronavirus screen:: The patient has NOT traveled to [place], [place], or [place] in the past 14 days. Proceed with normal triage process as indicated. The patient has NOT had contact with known/suspected case of Coronavirus? Proceed with normal triage procedures. - Social history:: Smoking status: Patient reports the use of cigarette tobacco products, smokes one-half pack cigarettes per day. - Family history:: not pertinent. - Ebola Screening: : No symptoms or risks identified at this time. - Hospitalizations: : No recent hospitalization is reported. Screenin:00 Abuse screen: Denies threats or abuse. Denies injuries from another. Nutritional wh screening: No deficits noted. Tuberculosis screening: No symptoms or risk factors identified. Fall Risk None identified. Assessment: 23:10 General: Appears in no apparent distress. Behavior is calm, cooperative, appropriate wh for age. Pain: Complains of pain in headache Pain does not radiate. Pain currently is 9 out of 10 on a pain scale. Quality of pain is described as throbbing, Pain began a week ago. Neuro: Level of Consciousness is awake, alert, obeys commands, Oriented to person, place, time, situation, Appropriate for age Carbon Rod Inserter are equal bilaterally Moves all extremities. Gait is steady, Speech is normal, Facial symmetry appears normal, Pupils are PERRLA, Reports headache. Cardiovascular: Heart tones S1 S2. Respiratory: Airway is patent Respiratory effort is even, unlabored, Respiratory pattern is regular, symmetrical, Breath sounds are clear bilaterally. GI: Abdomen is flat, non-distended. : No signs and/or symptoms were reported regarding the genitourinary system. EENT: No signs and/or symptoms were reported regarding the EENT system. Derm: Skin is intact, is healthy with good turgor, Skin is pink, warm \T\ dry. normal. Musculoskeletal: Circulation, motion, and sensation intact. 08/26 00:17 Reassessment: Patient appears in no apparent distress at this time. No changes from previously documented assessment. Patient and/or family updated on plan of care and expected duration. Pain level reassessed. Patient is alert, oriented x 3, equal unlabored respirations, skin warm/dry/pink. 01:30 Reassessment: Patient appears in no apparent distress at this time. Patient states rv feeling better. Patient states symptoms have improved. Vital Signs: 08/25 22:22 BP 150 / 88; Pulse 93; Resp 17; Temp 98.5(TE); Pulse Ox 99% on R/A; Weight 112.49 kg; rv 08/26 00:16 BP 114 / 50; Pulse 68; Resp 18; Pulse Ox 98% on R/A; 01:30 BP 121 / 61; Pulse 66; Resp 16; Pulse Ox 99% on R/A; rv Andrews Coma Score: 01:13 Eye Response: spontaneous(4). Verbal Response: oriented(5). Motor Response: obeys rn commands(6). Total: 15. ED Course: 08/25 22:14 Patient arrived in ED. ds1 22:22 Triage completed. rv 22:24 Arm band placed on Patient placed. rv 23:00 Patient has correct armband on for positive identification. Bed in low position. Call light in reach. Side rails up X 1. Pulse ox on. NIBP on. 23:09 Carlos Menezes MD is Attending Physician. rn 23:10 Marlene Dickens is Primary Nurse. 23:30 CT Head Brain wo Cont In Process Unspecified. EDNY 08/26 00:00 Inserted saline lock: 20 gauge in left antecubital area, using aseptic technique. Blood oe collected. 01:13 Kobe Crooks MD is Referral Physician. rn 01:30 No provider procedures requiring assistance completed. IV discontinued, intact, rv bleeding controlled, No redness/swelling at site. Pressure dressing applied. Administered Medications: 08/25 23:51 Drug: Decadron - Dexamethasone 10 mg Route: IVP; Site: left antecubital; 08/26 01:29 Follow up: Response: No adverse reaction 08/25 23:53 Drug: Demerol - Meperidine 12.5 mg Route: IVP; Site: left antecubital; 08/26 01:30 Follow up: Response: No adverse reaction; Marked relief of symptoms 08/25 23:55 Drug: NS 0.9% 1000 ml Route: IV; Rate: 1000 ml; Site: left antecubital; 23:55 Drug: Reglan 10 mg Route: IVP; Site: left antecubital; 08/26 01:30 Follow up: Response: No adverse reaction rv Outcome: 01:14 Discharge ordered by . rn 01:30 Discharged to home ambulatory, with family. rv 01:30 Condition: improved 01:30 Discharge instructions given to patient, Instructed on discharge instructions, follow up and referral plans. medication usage, Demonstrated understanding of instructions, follow-up care, medications. 01:31 Patient left the ED. rv Addendum: 09/01/2019 15:40 Addendum: Culture Results: Positive urine culture. Patient was not prescribed s s antibiotics at discharge. Report given to BRAD for further evaluation and then to tire fabric inspector for follow up with patient. Phone call Attempt #1 Attempted to call patient to follow up. Tuan Nix NP recommends to prescribe Levaquin 250 mg PO DAILY x 3 days. No answer. not setup Certified letter sent to listed address for patient. Signatures: Dispatcher [employer] DEREKNY MadanAriana ds1 Carlos Menezes MD MD rn Fernanda Singh RN RN ss Sp [place] Winsy wh Vicente, Ronaldo, RN RN rv
--- NOTE | 2019-08-26 01:15 | EDPHYS ---
Physician Documentation [facility] Name: Ana Maria Robin Age: 29 yrs Sex: Female : 1990 Arrival Date: 08/25/2019 Time: 22:14 Bed 18 Private MD: ED Physician Carlos Menezes HPI: 08/26 00:42 This 29 yrs old Female presents to ER via Ambulatory with complaints of rn Headache. 00:42 The patient complains of pain to the top of head. The patient describes the headache as rn aching. Onset: The symptoms/episode began/occurred 1 week(s) ago. Associated signs and symptoms: Pertinent positives: nausea, Photophobia Pertinent negatives: altered mental status, fever, rash, vision loss, vertigo. Severity of symptoms: At its worst the pain was moderate, in the emergency department the pain is unchanged. The patient has not experienced similar symptoms in the past. Reports headache, for 1 week, constant, no hx of previous headaches, no famhx of brain tumor/brain mass/aneurysm. NO head trauma. No fever. Reports right scalp is tingling, no focal weakness. No seizure. reports son recently diagnosed with flu. + sensitive to light and sound. . 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 - Coronavirus screen:: The patient has NOT traveled to [place], [place], or [place] in the past 14 days. Proceed with normal triage process as indicated. The patient has NOT had contact with known/suspected case of Coronavirus? Proceed with normal triage procedures. - Social history:: Smoking status: Patient reports the use of cigarette tobacco products, smokes one-half pack cigarettes per day. - Family history:: not pertinent. - Ebola Screening: : No symptoms or risks identified at this time. - Hospitalizations: : No recent hospitalization is reported. ROS: 08/26 00:42 Constitutional: Negative for fever, chills, and weight loss, Eyes: Negative for injury, rn pain, redness, and discharge, Neck: Negative for injury, pain, and swelling, Cardiovascular: Negative for chest pain, palpitations, and edema, Respiratory: Negative for shortness of breath, cough, wheezing, and pleuritic chest pain, Abdomen/GI: Negative for abdominal pain, vomiting, diarrhea, and constipation, MS/Extremity: Negative for injury and deformity, Skin: Negative for injury, rash, and discoloration, Neuro: Negative for weakness, and seizure. Exam: 00:42 Constitutional: This is a well developed, well nourished patient who is awake, alert, rn and in no acute distress. Head/Face: Normocephalic, atraumatic. Eyes: Pupils equal round and reactive to light, extra-ocular motions intact. Lids and lashes normal. Conjunctiva and sclera are non-icteric and not injected. Cornea within normal limits. Periorbital areas with no swelling, redness, or edema. ENT: MMM Neck: Trachea midline, no thyromegaly or masses palpated, and no cervical lymphadenopathy. Supple, full range of motion without nuchal rigidity, or vertebral point tenderness. No Meningismus. Cardiovascular: Regular rate and rhythm. No pulse deficits. Respiratory: No increased work of breathing, no retractions or nasal flaring. MS/ Extremity: Pulses equal, no cyanosis. Neurovascular intact. Full, normal range of motion. Equal circumference. Neuro: Awake and alert, GCS 15, oriented to person, place, time, and situation. Cranial nerves II-XII grossly intact. Motor strength 5/5 in all extremities. Sensory grossly intact. Vital Signs: 08/25 22:22 BP 150 / 88; Pulse 93; Resp 17; Temp 98.5(TE); Pulse Ox 99% on R/A; Weight 112.49 kg; rv 08/26 00:16 BP 114 / 50; Pulse 68; Resp 18; Pulse Ox 98% on R/A; wh 01:30 BP 121 / 61; Pulse 66; Resp 16; Pulse Ox 99% on R/A; rv Jackson Coma Score: 01:13 Eye Response: spontaneous(4). Verbal Response: oriented(5). Motor Response: obeys rn commands(6). Total: 15. MDM: 08/25 23:09 Patient medically screened. rn 08/26 01:13 Differential diagnosis: hypertensive headache, migraine, tension headache, vasomotor rn headache. Data reviewed: vital signs, nurses notes, lab test result(s), radiologic studies, and as a result, I will discharge patient. Counseling: I had a detailed discussion with the patient and/or guardian regarding: the historical points, exam findings, and any diagnostic results supporting the discharge/admit diagnosis, lab results, radiology results, the need for outpatient follow up, to return to the emergency department if symptoms worsen or persist or if there are any questions or concerns that arise at home. Response to treatment: the patient's symptoms have markedly improved after treatment, and as a result, I will discharge patient. Special discussion: I discussed with the patient/guardian in detail that at this point there is no indication for admission to the hospital. It is understood, however, that if the symptoms persist or worsen the patient needs to return immediately for re-evaluation. Based on the history and exam findings, there is no indication for further emergent testing or inpatient evaluation. I discussed with the patient/guardian the need to see the neurologist for further evaluation of the symptoms. I discussed with the patient/guardian the need to see the primary care provider for further evaluation of the symptoms. 08/25 23:22 Order name: [place] Screen Profile; Complete Time: 01: rn 08/25 23:22 Order name: Urine Microscopic Only; Complete Time: 00:46 rn 08/25 23:22 Order name: Basic Metabolic Panel; Complete Time: 00:46 rn 08/25 23:23 Order name: Flu; Complete Time: 01: rn 08/26 00:04 Order name: Urine Dipstick--Ancillary (enter results); Complete Time: 00:46 em1 08/26 00:04 Order name: Urine --Ancillary (enter results); Complete Time: 00:46 em1 08/25 22:42 Order name: CT Head Brain wo Cont rn 08/25 23:22 Order name: IV Start; Complete Time: 23:54 rn 08/25 23:22 Order name: Urine Test (obtain specimen); Complete Time: 23:54 rn 08/26 00:34 Order name: Urine Culture EDMS 08/25 23:22 Order name: Urine Dipstick-Ancillary (obtain specimen); Complete Time: 23:54 rn Administered Medications: 08/25 23:51 Drug: Decadron - Dexamethasone 10 mg Route: IVP; Site: left antecubital; 08/26 01:29 Follow up: Response: No adverse reaction 08/25 23:53 Drug: Demerol - Meperidine 12.5 mg Route: IVP; Site: left antecubital; 08/26 01:30 Follow up: Response: No adverse reaction; Marked relief of symptoms 08/25 23:55 Drug: NS 0.9% 1000 ml Route: IV; Rate: 1000 ml; Site: left antecubital; 23:55 Drug: Reglan 10 mg Route: IVP; Site: left antecubital; 08/26 01:30 Follow up: Response: No adverse reaction rv Disposition: 08/26/19 01:14 Discharged to Home. Impression: Migraine. - Condition is Stable. - Discharge Instructions: Migraine Headache. - Medication Reconciliation Form, Thank You Letter, Antibiotic Education, Prescription Opioid Use, Work release form form. - Follow up: Kobe Crooks MD; When: As needed; Reason: Recheck today's complaints, Re-evaluation by your physician. - Problem is new. - Symptoms have improved. Signatures: Dispatcher [employer] EDMS Carlos Menezes MD MD rn [place], Winsy Peter Chance RN RN rv Corrections: (The following items were deleted from the chart) 01:31 01:14 08/26/2019 01:14 Discharged to Home. Impression: Migraine. Condition is Stable. rv Forms are Medication Reconciliation Form, Thank You Letter, Antibiotic Education, Prescription Opioid Use. Follow up: Kobe Crooks; When: As needed; Reason: Recheck today's complaints, Re-evaluation by your physician. Problem is new. Symptoms have improved. rn
[2019-08-26 01:39] VITALS: TEMP 98.5
[2019-08-26 01:42] VITALS: BP 121/61; O2SAT 99
--- NOTE | 2019-08-26 12:10 | RAD REPORT ---
EXAM DESCRIPTION: CT - Head Brain Wo Cont - 08/26/2019 5:20 am CLINICAL HISTORY: Headache;Numbness TECHNIQUE: Multiple axial CT images of the brain were performed followed by sagittal and coronal rec onstructed images. The CT study is performed according to ALARA (as low as reasonably achievable) or ALARA/IMAGE GENTLY, with automatic adjustment of mA and/or kV according to patient size. Performed on: 08/25/2019 at 11:17 PM COMPARISON: None. FINDINGS: There is no evidence of mass, acute mass effect or midline shift. There are no acute extra -axial fluid collections. There is no evidence of acute intracranial hemorrhage. The cerebral sulci and ventricles are normal in size and configuration. There are no focal abnormal areas of increased or decreased attenuation. There is no significant mucosal thickening of the paranasal sinuses. The mastoid air cells are clear. The orbital contents are grossly unremarkable. No acute osseous abnormalities are identified. No focal soft tissue abnormalities are identified. IMPRESSION: 1. There is no evidence of acute intracranial pathology. 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 The interpreting radiologist is f ully responsible for the content of the report.
== END 2019-08-26 01:31 | disposition home or self-care (01) ==
LOC: ER 22:13
DX: G43.909 Migraine, unspecified, not intractable, without status migrainosus (principal); Z72.0 Tobacco use; Z88.0 Allergy status to penicillin; Z88.1 Allergy status to other antibiotic agents; Z88.2 Allergy status to sulfonamides; Z88.8 Allergy status to other drugs, medicaments and biological substances
CPT/HCPCS: 87088; 87086; 80048; 36415; 86308; 81025; 87077; 87186; 81003; 81015; 87804 ×2; 70450; 96375; 96374; 99284; J2765; J1100; J2175; J7030

== ENCOUNTER 2019-09-27 22:30 | Emergency (ER) | payer BC ==
--- OUTSIDE RECORDS SUMMARY | 2019-09-27 22:43 | XMS REPORT ---
:1990 [facility] Address [address] [place] [address] Dr. Tran [address] [place] [id number] Care Team Providers Name Role Phone Unavailable Unavailable Unavailable Problems This patient has no known problems. Allergies, Adverse Reactions, Alerts This patient has no known allergies or adverse reactions. Medications This patient has no known medications.
[2019-09-27] MEDS ORDERED: ONDANSETRON 4 MG/2 ML VIAL ONE (23:16)
[2019-09-27] MEDS ORDERED: KETOROLAC 30 MG/ML INJ ONE (23:16)
[2019-09-27] MEDS ORDERED: DIPHENHYDRAMINE 50 MG/ML VIAL ONE (23:16)
--- NOTE | 2019-09-28 01:32 | EDPHYS ---
Physician Documentation [facility] Name: Ana Maria Robin Age: 29 yrs Sex: Female : 1990 Arrival Date: 09/27/2019 Time: 22:31 Bed 17 Private MD: ED Physician Norris Adkins HPI: 06:22 This 29 yrs old Female presents to ER via Ambulatory with complaints of tw4 Headache. 06:22 The patient complains of pain to the forehead. The patient describes the headache as tw4 pounding. 06:23 Onset: The symptoms/episode began/occurred today. Associated signs and symptoms: The tw4 patient has no apparent associated signs or symptoms. Severity of symptoms: At its worst the pain was moderate, in the emergency department the pain is unchanged. Headache History: Denies prior headaches. The patient has not experienced similar symptoms in the past. 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 - Social history:: Smoking status: Patient reports the use of cigarette tobacco products, smokes one-half pack cigarettes per day. ROS: 06:23 Constitutional: Negative for fever, chills, and weight loss, Eyes: Negative for injury, tw4 pain, redness, and discharge, Cardiovascular: Negative for chest pain, palpitations, and edema, Respiratory: Negative for shortness of breath, cough, wheezing, and pleuritic chest pain, Abdomen/GI: Negative for abdominal pain, nausea, vomiting, diarrhea, and constipation, Back: Negative for injury and pain, MS/Extremity: Negative for injury and deformity. Neuro: Positive for headache, Negative for altered mental status, dizziness, gait disturbance, hearing loss, loss of consciousness, numbness, seizure activity, speech changes, syncope, near syncope, tingling, tinnitus, tremor, visual changes, weakness. Exam: 06:23 Constitutional: This is a well developed, well nourished patient who is awake, alert, tw4 and in no acute distress. Head/Face: Normocephalic, atraumatic. Chest/axilla: Normal chest wall appearance and motion. Nontender with no deformity. No lesions are appreciated. Cardiovascular: Regular rate and rhythm with a normal S1 and S2. No gallops, murmurs, or rubs. Normal PMI, no JVD. No pulse deficits. Respiratory: Lungs have equal breath sounds bilaterally, clear to auscultation and percussion. No rales, rhonchi or wheezes noted. No increased work of breathing, no retractions or nasal flaring. Abdomen/GI: Soft, non-tender, with normal bowel sounds. No distension or tympany. No guarding or rebound. No evidence of tenderness throughout. Back: No spinal tenderness. No costovertebral tenderness. Full range of motion. MS/ Extremity: Pulses equal, no cyanosis. Neurovascular intact. Full, normal range of motion. Neuro: Awake and alert, GCS 15, oriented to person, place, time, and situation. Cranial nerves II-XII grossly intact. Motor strength 5/5 in all extremities. Sensory grossly intact. Cerebellar exam normal. Normal gait. Vital Signs: 09/27 22:53 BP 147 / 58; Pulse 85; Resp 17 S; Temp 98.7(TE); Pulse Ox 100% on R/A; Weight 104.33 kg jd3 (R); Height 5 ft. 6 in. (167.64 cm) (R); Pain 10/10; 01:31 BP 138 / 61; Pulse 81; Resp 15; Temp 98.5; Pulse Ox 99% on R/A; Pain 5/10; rv 09/27 22:53 Body Mass Index 37.12 (104.33 kg, 167.64 cm) jd3 MDM: 09/27 23:02 Patient medically screened. tw4 06:23 Data reviewed: vital signs, nurses notes. Data interpreted: Pulse oximetry: tw4 Interpretation: normal. Counseling: I had a detailed discussion with the patient and/or guardian regarding: the historical points, exam findings, and any diagnostic results supporting the discharge/admit diagnosis. Medication response: Toradol relieved patient's pain. The symptoms have resolved. Response to treatment: the patient's symptoms have resolved after treatment, and as a result, I will discharge patient. Special discussion: I discussed with the patient/guardian in detail that at this point there is no indication for admission to the hospital. It is understood, however, that if the symptoms persist or worsen the patient needs to return immediately for re-evaluation. Administered Medications: 09/27 23: Drug: Zofran (Ondansetron) 4 mg Route: IVP; Site: left forearm; rv 01:30 Follow up: Response: No adverse reaction; Marked relief of symptoms; Pain is decreased rv 09/27 23: Drug: Benadryl 25 mg Route: IVP; Site: left forearm; rv 01:30 Follow up: Response: Pain is decreased rv 09/27 22: Drug: TORadol 30 mg Route: IVP; Site: left forearm; rv 01:31 Follow up: Response: No adverse reaction; Marked relief of symptoms; Pain is decreased rv Disposition: 09/28/19 01:31 Discharged to Home. Impression: Migraine without aura, not intractable. - Condition is Stable. - Discharge Instructions: Migraine Headache. - Prescriptions for Fiorinal 50- 325-40 mg Oral Capsule - take 1 capsule by ORAL route every 4 hours As needed - not to exceed 6 capsules per day; 20 capsule. Ibuprofen 800 mg Oral Tablet - take 1 tablet by ORAL route every 12 hours As needed take with food; 20 tablet. Zofran 4 mg Oral Tablet - take 1 tablet by ORAL route every 12 hours As needed; 6 tablet. - Medication Reconciliation Form, Thank You Letter, Antibiotic Education, Prescription Opioid Use form. - Follow up: Private Physician; When: Upon discharge from the Emergency Department; Reason: If symptoms return, Recheck today's complaints, Continuance of care, Re-evaluation by your physician. - Problem is new. - Symptoms have improved. Signatures: Luis Peck RN RN jd3 Norris Adkins MD MD tw4 Peter Chance RN RN rv Corrections: (The following items were deleted from the chart) 01:38 01:31 09/28/2019 01:31 Discharged to Home. Impression: Migraine without aura, not rv intractable. Condition is Stable. Forms are Medication Reconciliation Form, Thank You Letter, Antibiotic Education, Prescription Opioid Use. Follow up: Private Physician; When: Upon discharge from the Emergency Department; Reason: If symptoms return, Recheck today's complaints, Continuance of care, Re-evaluation by your physician. Problem is new. Symptoms have improved. tw4
--- NOTE | 2019-09-28 01:32 | ER ---
Nurse's Notes [facility] Name: Ana Maria Robin Age: 29 yrs Sex: Female : 1990 Arrival Date: 09/27/2019 Time: 22:31 Bed 17 Private MD: Diagnosis: Migraine without aura, not intractable Presentation: 09/27 22:50 Chief complaint: Patient states: "I got a certified mail that I needed to fallow up jd3 with my primary care about my lab results from my last visit. I am also having a headache on the right side of my head.". Coronavirus screen: The patient has NOT traveled to [place] in the past 14 days. The patient has NOT had contact with known and/or suspected case of Coronavirus. Proceed with normal triage procedures. Ebola Screen: Patient negative for fever greater than or equal to 101.5 degrees Fahrenheit, and additional compatible Ebola Virus Disease symptoms. Initial Sepsis Screen: Does the patient meet any 2 criteria? No. Patient's initial sepsis screen is negative. Does the patient have a suspected source of infection? No. Patient's initial sepsis screen is negative. Risk Assessment: Do you want to hurt yourself or someone else? Patient reports no desire to harm self or others. 22:50 Method Of Arrival: Ambulatory j 22:50 Acuity: HELADIO 3 jd3 23:31 Onset of symptoms was September 27, 2019 at 19:00. rv Triage Assessment: 23:31 Headache History: The patient has had previous headaches and this one is similar to rv previous episodes. 23:31 General: Behavior is calm, cooperative. General: Appears in no apparent distress. rv uncomfortable. Pain: Complains of pain in head Pain Pain began suddenly, Also complains of photophobia. 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 - Social history:: Smoking status: Patient reports the use of cigarette tobacco products, smokes one-half pack cigarettes per day. Screenin:30 Abuse screen: Denies threats or abuse. Denies injuries from another. Nutritional rv screening: No deficits noted. Tuberculosis screening: No symptoms or risk factors identified. Fall Risk None identified. Assessment: 23:29 General: Appears in no apparent distress. Pain: Complains of pain in headache. Neuro: rv Level of Consciousness is awake, alert, obeys commands, Oriented to person, place, time, situation. Neuro: Reports headache. Cardiovascular: Patient's skin is warm and dry. Respiratory: Airway is patent. 01:32 Reassessment: Patient appears in no apparent distress at this time. Patient and/or rv family updated on plan of care and expected duration. Pain level reassessed. Patient is alert, oriented x 3, equal unlabored respirations, skin warm/dry/pink. Patient states feeling better. Patient states symptoms have improved. Vital Signs: 09/27 22:53 BP 147 / 58; Pulse 85; Resp 17 S; Temp 98.7(TE); Pulse Ox 100% on R/A; Weight 104.33 kg jd3 (R); Height 5 ft. 6 in. (167.64 cm) (R); Pain 10/10; 01:31 BP 138 / 61; Pulse 81; Resp 15; Temp 98.5; Pulse Ox 99% on R/A; Pain 5/10; rv 09/27 22:53 Body Mass Index 37.12 (104.33 kg, 167.64 cm) jd3 ED Course: 09/27 22:31 Patient arrived in ED. cl3 22:52 Triage completed. jd3 22:54 Arm band placed on. jd3 23:02 Norris Adkins MD is Attending Physician. tw4 23:10 Peter Chance RN is Primary Nurse. rv 23:30 Patient has correct armband on for positive identification. Placed in gown. Bed in low rv position. Call light in reach. Pulse ox on. NIBP on. 23:30 Inserted saline lock: 22 gauge in left forearm, using aseptic technique. rv 01:32 No provider procedures requiring assistance completed. IV discontinued, intact, rv bleeding controlled, No redness/swelling at site. Pressure dressing applied. Administered Medications: 09/27 23:28 Drug: Zofran (Ondansetron) 4 mg Route: IVP; Site: left forearm; rv 01:30 Follow up: Response: No adverse reaction; Marked relief of symptoms; Pain is decreased rv 09/27 23:28 Drug: Benadryl 25 mg Route: IVP; Site: left forearm; rv 01:30 Follow up: Response: Pain is decreased rv 09/27 23:29 Drug: TORadol 30 mg Route: IVP; Site: left forearm; rv 01:31 Follow up: Response: No adverse reaction; Marked relief of symptoms; Pain is decreased rv Outcome: 01:31 Discharge ordered by tw4 01:32 Discharged to home ambulatory, with family. rv 01:32 Condition: improved 01:32 Discharge instructions given to patient, Instructed on discharge instructions, follow up and referral plans. Demonstrated understanding of instructions, follow-up care. 01:33 Instructed on medication usage, Prescriptions given X 3. rv 01:38 Patient left the ED. rv Signatures: Luis Peck, RN RN Norris Horner MD MD tw4 Peter Chance RN RN Teresa Mendoza cl3
[2019-09-28 01:47] VITALS: BP 138/61; TEMP 98.5; O2SAT 99
== END 2019-09-28 01:38 | disposition home or self-care (01) ==
LOC: ER 22:30
DX: G43.909 Migraine, unspecified, not intractable, without status migrainosus (principal); Z88.0 Allergy status to penicillin; Z88.2 Allergy status to sulfonamides; Z88.1 Allergy status to other antibiotic agents; F17.210 Nicotine dependence, cigarettes, uncomplicated
CPT/HCPCS: 96375; 96374; 99284; J1200; J2405

== ENCOUNTER 2019-11-26 14:10 | Emergency (ER) | payer BC, OTHER ==
--- OUTSIDE RECORDS SUMMARY | 2019-11-26 14:12 | XMS REPORT ---
:1990 Author Organization [facility] t Address [address] [place] [address] [address] [place] [address] Care Team Providers Name Role Phone Unavailable Unavailable Unavailable Problems This patient has no known problems. Allergies, Adverse Reactions, Alerts This patient has no known allergies or adverse reactions. Medications This patient has no known medications.
[2019-11-26 15:58] LABS: Absolute Lymphocytes (CBC) 3.9 K/uL (0.7-4.9); Basophils % 0.3 % (0-1.3); Hematocrit 41.9 % (36.0-45.0); Lymphocytes % 38.6 % (15.3-44.8); MPV 7.4 fL (7.6-11.3); RBC Red Blood Cell Count 4.39 M/uL (3.86-4.86)
[2019-11-26 16:00] LABS: Protime INR 1.1
[2019-11-26 16:17] LABS: ALT/SGPT 27 U/L (12-78); AST/SGOT 14 U/L (15-37); Albumin 3.8 g/dL (3.4-5.0); Alkaline Phosphatase 74 U/L (45-117); BUN Blood Urea Nitrogen 9 mg/dL (7-18); Bicarbonate 25 mmol/L (21-32); Bilirubin Direct < 0.1 mg/dL (0-0.2); Bilirubin Total 0.4 mg/dL (0.2-1.0); Glucose Level 84 mg/dL (74-106); Magnesium 2.1 mg/dL (1.8-2.4); NT PRO-BNP 22 pg/mL (<125); Potassium 3.8 mmol/L (3.5-5.1); Protein, Total 7.6 g/dL (6.4-8.2); Sodium Level 140 mmol/L (136-145); Troponin (Emerg Dept Use Only) < 0.02 ng/mL (0.0-0.045)
--- NOTE | 2019-11-26 16:27 | RAD REPORT ---
EXAM DESCRIPTION: Karen Single View11/26/2019 4:05 pm CLINICAL HISTORY: Chest pain COMPARISON: November 18, 2019 FINDINGS: The lungs appear clear of acute infiltrate. The heart is normal size IMPRESSION: No acute abnormalities displayed
--- NOTE | 2019-11-26 16:39 | ER ---
Nurse's Notes [facility] Name: Ana Maria Robin Age: 29 yrs Sex: Female : 1990 Arrival Date: 11/26/2019 Time: 14:12 Bed 20 Private MD: Diagnosis: Cough Presentation: 11/25 14:51 Chief complaint: Patient states: has had cough and intermittent fever for 1.5 months, iw had fever 101 this morning, also has had fatigue and body aches, her son tested positive for COVID 1.5 months ago but pt has had two negative COVID tests, last one was November 10, CXR was clear, was diagnosed with bronchitis, had a round of Zpack and is currently on albuterol and Tessalon Perles , strep was neg 3 weeks ago. Coronavirus screen: Surgical mask placed on patient. Patient moved to private room, placed in contact and droplet isolation with eye protection until further assessment. Patient reports a cough. Patient reports shortness of breath or difficulty breathing. Patient reports a measured and/or subjective temperature greater than 100.4F. Patient denies travel on a cruise ship or to a country the [facility] currently lists as an affected area. Patient reports contact with known and/or suspected case of COVID-19. Ebola Screen: Patient negative for fever greater than or equal to 101.5 degrees Fahrenheit, and additional compatible Ebola Virus Disease symptoms Patient denies exposure to infectious person. Patient denies travel to an Ebola-affected area in the 21 days before illness onset. No symptoms or risks identified at this time. Initial Sepsis Screen: Does the patient meet any 2 criteria? No. Patient's initial sepsis screen is negative. Does the patient have a suspected source of infection? No. Patient's initial sepsis screen is negative. Risk Assessment: Do you want to hurt yourself or someone else? Patient reports no desire to harm self or others. Onset of symptoms was September 2019. 14:51 Method Of Arrival: Ambulatory iw 14:51 Acuity: HELADIO 3 iw Triage Assessment: 15:00 General: Appears in no apparent distress. comfortable, obese, Behavior is cooperative, bp appropriate for age, anxious. Pain: Denies pain. EENT: Reports nasal congestion. Neuro: No deficits noted. Cardiovascular: Rhythm is sinus rhythm. Respiratory: Reports cough that is. GI: No signs and/or symptoms were reported involving the gastrointestinal system. : No signs and/or symptoms were reported regarding the genitourinary system. Derm: No deficits noted. Musculoskeletal: No deficits noted. 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 - Social history:: Smoking status: Patient/guardian denies using tobacco, Stopped _ months ago 1. Screenin:00 Abuse screen: Denies threats or abuse. Denies injuries from another. Nutritional bp screening: No deficits noted. Tuberculosis screening: No symptoms or risk factors identified. Fall Risk None identified. Assessment: 15:00 General: SEE TRIAGE NOTE. bp 15:56 Reassessment: XRAY AT B/S. ALL CURRENT ORDERS COMPLETED. RESULTS PENDING. bp 16:51 Reassessment: PT D/C HOME AMBULATORY, DX WITH COUGH. bp Vital Signs: 14:51 BP 130 / 91; Pulse 91; Resp 18 S; Temp 98.7; Pulse Ox 99% on R/A; Weight 120.2 kg; iw Height 5 ft. 6 in. (167.64 cm); Pain 8/10; 15:30 BP 125 / 61; Pulse 80; Resp 16; Pulse Ox 99% ; bp 15:56 BP 132 / 73; Pulse 95; Resp 29; Pulse Ox 100% ; bp 16:48 BP 122 / 90; Pulse 81; Resp 21; Temp 98.8; Pulse Ox 100% ; bp 14:51 Body Mass Index 42.77 (120.20 kg, 167.64 cm) ED Course: 14:12 Patient arrived in ED. mr 14:30 Gasper Interiano, AVIS is Primary Nurse. bp 14:35 Omega Hannah PA is PHCP. jr8 14:35 Carlos Menezes MD is Attending Physician. jr8 14:57 Triage completed. iw 14:59 Arm band placed on. iw 15:00 Patient has correct armband on for positive identification. Bed in low position. Call bp light in reach. Side rails up X2. 15:52 Initial lab(s) drawn, by me, sent to lab. EKG done, by ED staff. Inserted saline lock: lt1 22 gauge in left antecubital area, using aseptic technique. 16:06 XRAY Chest (1 view) In Process Unspecified. EDMS 16:38 Wilbre Gonsalves MD is Referral Physician. jr8 16:51 No provider procedures requiring assistance completed. IV discontinued, intact, bp bleeding controlled, No redness/swelling at site. Pressure dressing applied. Administered Medications: No medications were administered Outcome: 16:39 Discharge ordered by . jr8 16:51 Discharged to home ambulatory. bp 16:51 Condition: stable 16:51 Discharge instructions given to patient, Instructed on discharge instructions, follow up and referral plans. medication usage, Demonstrated understanding of instructions, follow-up care, medications, Prescriptions given X 1. 16:57 Patient left the ED. bp Signatures: Dispatcher [employer] EDDE Gertrude Craven Irene, RN RN iw Omega Hannah PA PA jr8 Gasper Interiano RN RN Yara Nugent lt1
--- NOTE | 2019-11-26 16:57 | EDPHYS ---
Physician Documentation [facility] Name: Ana Maria Robin Age: 29 yrs Sex: Female : 1990 Arrival Date: 11/26/2019 Time: 14:12 Bed 20 Private MD: ED Physician Carlos Menezes HPI: 11/25 15:46 This 29 yrs old Female presents to ER via Ambulatory with complaints of jr8 Fever, Cough. 15:46 The patient reports fever, not measured (subjective). Onset: The symptoms/episode jr8 began/occurred gradually, 1 month(s) ago. Modifying factors: The patient has had contact with sick son. Associated signs and symptoms: Pertinent positives: cough. Severity of symptoms: At their worst the symptoms were moderate in the emergency department the symptoms are unchanged. The patient has not experienced similar symptoms in the past. The patient has been recently seen by a physician:. Patient stated that her son was diagnosed with COVID. Stated that she has has intermittent fevers, cough, and chills for over a month. Has been tested twice for COVID. Both negative. Has also had strep, flu, and CXR completed and was put on zithromax. Still not feeling well. PCP referred to ED at that time for more extensive work up . [employer]: 15:02 LMP 10/13/2019 iw Historical: - Allergies: 14:59 Amoxicillin; iw 14:59 Labetalol; iw 14:59 PENICILLINS; iw 14:59 Sulfa (Sulfonamide Antibiotics); iw - Home Meds: 14:59 Tessalon Perles 100 mg Oral cap 1 cap 3 times per day [Active]; topiramate oral oral iw [Active]; Albuterol Inhl [Active]; - PMHx: 14:59 Asthma; Depression; iw - Immunization history:: Adult Immunizations not up to date. - Social history:: Smoking status: Patient/guardian denies using tobacco, Stopped _ months ago 1. ROS: 15:46 Eyes: Negative for injury, pain, redness, and discharge, ENT: Negative for injury, jr8 pain, and discharge, Neck: Negative for injury, pain, and swelling, Cardiovascular: Negative for chest pain, palpitations, and edema, Back: Negative for injury and pain, MS/Extremity: Negative for injury and deformity, Skin: Negative for injury, rash, and discoloration, Neuro: Negative for headache, weakness, numbness, tingling, and seizure. 15:46 Constitutional: Positive for body aches, chills, fever. 15:46 Respiratory: Positive for cough, Negative for shortness of breath, sputum production, wheezing. 15:46 Abdomen/GI: Positive for diarrhea, Negative for abdominal pain, nausea and vomiting. Exam: 15:46 Eyes: Pupils equal round and reactive to light, extra-ocular motions intact. Lids and jr8 lashes normal. Conjunctiva and sclera are non-icteric and not injected. Cornea within normal limits. Periorbital areas with no swelling, redness, or edema. ENT: Nares patent. No nasal discharge, no septal abnormalities noted. Tympanic membranes are normal and external auditory canals are clear. Oropharynx with no redness, swelling, or masses, exudates, or evidence of obstruction, uvula midline. Mucous membranes moist. Neck: Trachea midline, no thyromegaly or masses palpated, and no cervical lymphadenopathy. Supple, full range of motion without nuchal rigidity, or vertebral point tenderness. No Meningismus. Cardiovascular: Regular rate and rhythm with a normal S1 and S2. No gallops, murmurs, or rubs. Normal PMI, no JVD. No pulse deficits. Respiratory: Lungs have equal breath sounds bilaterally, clear to auscultation and percussion. No rales, rhonchi or wheezes noted. No increased work of breathing, no retractions or nasal flaring. Abdomen/GI: Soft, non-tender, with normal bowel sounds. No distension or tympany. No guarding or rebound. No evidence of tenderness throughout. Back: No spinal tenderness. No costovertebral tenderness. Full range of motion. Skin: Warm, dry with normal turgor. Normal color with no rashes, no lesions, and no evidence of cellulitis. MS/ Extremity: Pulses equal, no cyanosis. Neurovascular intact. Full, normal range of motion. Neuro: Awake and alert, GCS 15, oriented to person, place, time, and situation. Cranial nerves II-XII grossly intact. Motor strength 5/5 in all extremities. Sensory grossly intact. Cerebellar exam normal. Normal gait. 15:51 ECG was reviewed by the Attending Physician. [facility] Vital Signs: 14:51 BP 130 / 91; Pulse 91; Resp 18 S; Temp 98.7; Pulse Ox 99% on R/A; Weight 120.2 kg; iw Height 5 ft. 6 in. (167.64 cm); Pain 8/10; 15:30 BP 125 / 61; Pulse 80; Resp 16; Pulse Ox 99% ; bp 15:56 BP 132 / 73; Pulse 95; Resp 29; Pulse Ox 100% ; bp 16:48 BP 122 / 90; Pulse 81; Resp 21; Temp 98.8; Pulse Ox 100% ; bp 14:51 Body Mass Index 42.77 (120.20 kg, 167.64 cm) iw MDM: 14:35 Patient medically screened. jr8 16:37 Data reviewed: vital signs, nurses notes, lab test result(s), EKG, radiologic studies, jr8 plain films. Data interpreted: Pulse oximetry: on room air is 100 %. Interpretation: normal. Counseling: I had a detailed discussion with the patient and/or guardian regarding: the historical points, exam findings, and any diagnostic results supporting the discharge/admit diagnosis, lab results, radiology results, the need for outpatient follow up, a family practitioner, to return to the emergency department if symptoms worsen or persist or if there are any questions or concerns that arise at home. ED course: No acute findings on blood work or CXR. Will try steroid treatment given that she has asthma history without resolved persistent cough. No acute bacterial findings noted. No need for Abx at this time. If not better will refer to pulmonology . 11/25 14:45 Order name: Basic Metabolic Panel; Complete Time: 16:37 11/25 14:45 Order name: CBC with Diff; Complete Time: 15:59 11/25 14:45 Order name: LFT's; Complete Time: 16:37 11/25 14:45 Order name: Magnesium; Complete Time: 16:37 11/25 14:45 Order name: NT PRO-BNP; Complete Time: 16:37 11/25 14:45 Order name: PT-INR; Complete Time: 16:10 11/25 14:45 Order name: Troponin (emerg Dept Use Only); Complete Time: 16:37 11/25 14:45 Order name: XRAY Chest (1 view); Complete Time: 16:37 11/25 14:45 Order name: EKG; Complete Time: 14:48 11/25 14:45 Order name: Cardiac monitoring; Complete Time: 15:42 11/25 14:45 Order name: EKG - Nurse/Tech; Complete Time: 15:42 11/25 14:45 Order name: IV Saline Lock; Complete Time: 15:53 11/25 14:45 Order name: Labs collected and sent; Complete Time: 15:53 11/25 14:45 Order name: Procalcitonin; Complete Time: 16:37 11/25 14:45 Order name: O2 Per Protocol; Complete Time: 15:19 11/25 14:45 Order name: O2 Sat Monitoring; Complete Time: 15:19 EC:51 Rate is 79 beats/min. Rhythm is regular, Normal Sinus Rhythm. QRS [place] is Normal. MD jr8 interval is normal at 138 msec. QRS interval is normal at 80 msec. QT interval is normal at 433 msec. No Q waves. T waves are Inverted in lead III. T waves are Flattened in leads II, aVF. No ST changes noted. Clinical impression: NSR w/ Non-specific ST/T Changes. Interpreted by me. Reviewed by me. Administered Medications: No medications were administered Disposition: 17:04 Co-signature as Attending Physician, Carlos Menezes MD. rn Disposition: 11/26/19 16:39 Discharged to Home. Impression: Cough. - Condition is Stable. - Discharge Instructions: Cough, Adult. - Prescriptions for Medrol (Marvin) 4 mg Oral Tablets, Dose Pack - take 1 tablet by ORAL route as directed - follow package instructions; 1 packet. - Medication Reconciliation Form, Thank You Letter, Antibiotic Education, Prescription Opioid Use form. - Follow up: Wilber Gonsalves MD; When: 1 week; Reason: Recheck today's complaints, Continuance of care, Re-evaluation by your physician. - Problem is new. - Symptoms are unchanged. Signatures: Dispatcher [employer] Deb Bingham, Carlos Beauchamp RN, MD MD rn Roszak, Josh, PA PA jr8 Gasper Interiano RN RN bp Corrections: (The following items were deleted from the chart) 16:57 16:39 11/26/2019 16:39 Discharged to Home. Impression: Cough. Condition is Stable. bp Forms are Medication Reconciliation Form, Thank You Letter, Antibiotic Education, Prescription Opioid Use. Follow up: Wilber Gonsalves; When: 1 week; Reason: Recheck today's complaints, Continuance of care, Re-evaluation by your physician. Problem is new. Symptoms are unchanged. jr8
[2019-11-26 17:07] VITALS: O2SAT 100
[2019-11-26 17:08] VITALS: BP 122/90; TEMP 98.8
--- NOTE | 2019-11-27 06:49 | EKG ---
Test Date: 2019-11-26 Test Time: 15:40:04 Thread Grinder: JADA MEASUREMENT RESULTS: Intervals: Rate: 79 HI: 138 QRSD: 80 QT: 378 QTc: 433 [place]: P: 42 HI: 138 QRS: 38 T: 19 INTERPRETIVE STATEMENTS: Normal sinus rhythm Nonspecific T wave abnormality Abnormal ECG Compared to ECG 06/23/2018 15:12:58 T-wave abnormality now present Sinus bradycardia no longer present Sinus arrhythmia no longer present Electronically Signed On 11-27-19 06:48:28 CDT by Enmanuel Webster
== END 2019-11-26 16:57 | disposition home or self-care (01) ==
LOC: ER 14:10
DX: R05 Cough (principal); J45.909 Unspecified asthma, uncomplicated; F32.9 Major depressive disorder, single episode, unspecified; Z88.0 Allergy status to penicillin; Z88.1 Allergy status to other antibiotic agents; Z88.2 Allergy status to sulfonamides; Z88.8 Allergy status to other drugs, medicaments and biological substances
CPT/HCPCS: 36415; 71045; 80048; 80076; 83735; 83880; 84145; 84484; 85025; 85610; 93005; 99284

== ENCOUNTER 2019-11-29 22:38 | Emergency (ER) | payer BC, OTHER ==
--- OUTSIDE RECORDS SUMMARY | 2019-11-29 22:41 | XMS REPORT ---
:1990 Author Organization [facility] t Address [address] [place] [address] [address] [place] [address] Care Team Providers Name Role Phone Unavailable Unavailable Unavailable Problems This patient has no known problems. Allergies, Adverse Reactions, Alerts This patient has no known allergies or adverse reactions. Medications This patient has no known medications.
[2019-11-29] MEDS ORDERED: MORPHINE 4 MG/ML SYR ONE (23:23)
[2019-11-29] MEDS ORDERED: ONDANSETRON 4 MG/2 ML VIAL ONE (23:23)
[2019-11-29] MEDS ORDERED: NA CHLORIDE 0.9% 1,000 ML ONE (23:23)
[2019-11-29 23:36] LABS: Urine Blood 1+ (NEG); Urine Glucose 1+ (NEG); Urine Protein NEGATIVE (NEG); Urine Specific Gravity >1.030 (1.005-1.030)
[2019-11-29 23:43] LABS: Absolute Lymphocytes (CBC) 4.6 K/uL (0.7-4.9); Basophils % 0.9 % (0-1.3); Hematocrit 40.2 % (36.0-45.0); Lymphocytes % 25.6 % (15.3-44.8); MPV 7.4 fL (7.6-11.3); RBC Red Blood Cell Count 4.23 M/uL (3.86-4.86)
[2019-11-29 23:59] LABS: ALT/SGPT 24 U/L (12-78); AST/SGOT 10 U/L (15-37); Albumin 3.8 g/dL (3.4-5.0); Alkaline Phosphatase 79 U/L (45-117); BUN Blood Urea Nitrogen 12 mg/dL (7-18); Bicarbonate 22 mmol/L (21-32); Bilirubin Direct < 0.1 mg/dL (0-0.2); Bilirubin Total 0.2 mg/dL (0.2-1.0); Glucose Level 188 mg/dL (74-106); Lipase 47 U/L (73-393); Potassium 3.7 mmol/L (3.5-5.1); Protein, Total 8.1 g/dL (6.4-8.2); Sodium Level 139 mmol/L (136-145)
--- NOTE | 2019-11-30 00:31 | ER ---
Nurse's Notes [facility] Name: Ana Maria Robin Age: 29 yrs Sex: Female : 1990 Arrival Date: 11/29/2019 Time: 22:41 Bed 15 Private MD: Diagnosis: Right flank pain. Bronchitis. Diarrhea. Leukocytosis Presentation: 11/28 22:47 Chief complaint: Patient states: RIGHT FLANK PAIN, UNABLE TO URINATE ALL DAY. ls4 Coronavirus screen: Proceed with normal triage. Patient denies a cough. Patient denies shortness of breath or difficulty breathing. Patient denies measured and/or subjective temperature greater than 100.4F prior to today's visit. Patient denies travel on a cruise ship or to a country the [facility] currently lists as an affected area. Patient denies contact with known and/or suspected case of COVID-19. Ebola Screen: No symptoms or risks identified at this time. Initial Sepsis Screen: Does the patient meet any 2 criteria? No. Patient's initial sepsis screen is negative. Does the patient have a suspected source of infection? No. Patient's initial sepsis screen is negative. Risk Assessment: Do you want to hurt yourself or someone else? Patient reports no desire to harm self or others. Onset of symptoms was November 28, 2019 at 12:00. 22:47 Method Of Arrival: Wheelchair ls4 22:47 Acuity: HELADIO 3 ls4 Triage Assessment: 23:11 General: Appears uncomfortable, Behavior is calm, cooperative. Pain: Complains of pain ls4 in right low back Pain currently is 10 out of 10 on a pain scale. EENT: No deficits noted. No signs and/or symptoms were reported regarding the EENT system. GI: Abdomen is round non-distended, Bowel sounds present X 4 quads. Abd is soft and non tender X 4 quads. : Reports inability to void. Historical: - Allergies: 23:11 Amoxicillin; ls4 23:11 Labetalol; ls4 23:11 PENICILLINS; ls4 23:11 Sulfa (Sulfonamide Antibiotics); ls4 - Home Meds: 23:11 Albuterol Inhl [Active]; ls4 - PMHx: 23:11 Asthma; Depression; ls4 - Immunization history:: Adult Immunizations up to date. - Social history:: Smoking status: Patient/guardian denies using tobacco, Stopped _ months ago 1. Screenin:47 Abuse screen: Denies threats or abuse. Denies injuries from another. Nutritional ls4 screening: No deficits noted. Tuberculosis screening: No symptoms or risk factors identified. Fall Risk None identified. Assessment: 23:49 General: Appears SEE TRIAGE NOTE . ls4 Vital Signs: 22:47 BP 170 / 103; Pulse 98; Resp 26; Temp 99.0(O); Pulse Ox 99% on R/A; Weight 120.2 kg; ls4 Height 5 ft. 6 in. (167.64 cm); Pain 10/10; 23:14 BP 156 / 81; Pulse 101; Resp 24; Pulse Ox 100% on R/A; Pain 10/10; ls4 11/29 00:41 BP 128 / 69; Pulse 82; Resp 16; Temp 98.7; Pulse Ox 100% on R/A; rv 11/28 22:47 Body Mass Index 42.77 (120.20 kg, 167.64 cm) ls4 ED Course: 11/28 22:41 Patient arrived in ED. ds1 22:46 Buzz Timmons MD is Attending Physician. pkl 22:47 Patient has correct armband on for positive identification. Bed in low position. Call ls4 light in reach. Side rails up X 1. Pulse ox on. NIBP on. Warm blanket given. Verbal reassurance given. Diet: Patient is NPO. 22:54 Annie Deluna, RN is Primary Nurse. ls4 22:58 Triage completed. ls4 23:00 Patient placed Patient notified of wait time. rv 23:15 No provider procedures requiring assistance completed. Inserted saline lock: 20 gauge ls4 in left antecubital area, using aseptic technique. Blood collected. 23:15 Initial lab(s) drawn, by me, sent to lab. ls4 23:31 Radiology exam delayed due to. kw1 23:33 Radiology exam delayed due to Patient unable to come to CT Dept. for exam. RN (Annie Deluna) is starting an IV at this time. 23:52 CT Stone Protocol Sent. ls4 11/29 00:02 CT Stone Protocol In Process Unspecified. EDMS 00:42 IV discontinued, intact, bleeding controlled, No redness/swelling at site. Pressure rv dressing applied. Administered Medications: 11/28 23:20 Drug: Zofran (Ondansetron) 4 mg Route: IVP; Site: left subclavian; ls4 23:51 Follow up: Response: No adverse reaction; Marked relief of symptoms ls4 23:24 Drug: morphine 4 mg Route: IVP; Site: left antecubital; ls4 23:51 Follow up: Response: No adverse reaction; Marked relief of symptoms ls4 23:25 Drug: NS 0.9% 1000 ml Route: IV; Rate: 1000 ml; Site: left antecubital; ls4 11/29 00:41 Follow up: IV Status: Completed infusion; IV Intake: 1000ml rv 00:40 Drug: Cipro 500 mg Route: PO; rv 00:40 Follow up: Response: Medication administered at discharge. rv Intake: 11/28 19:34 IV: 1000ml; Total: 1000ml. ls4 11/29 00:41 IV: 1000ml; Total: 2000ml. rv Outcome: 00:30 Discharge ordered by . melania 00:42 Discharged to home ambulatory. rv 00:42 Condition: improved 00:42 Discharge instructions given to patient, Instructed on discharge instructions, follow up and referral plans. medication usage, Demonstrated understanding of instructions, follow-up care, medications, Prescriptions given X 2. 00:43 Patient left the ED. rv Signatures: Dispatcher [employer] EDBuzz Alvarez MD MD pkl Sanford, Demi ds1 Julia Navarrete kw1 Peter Chance RN RN rv Stewart, Lisa, RN RN ls4
--- NOTE | 2019-11-30 00:31 | EDPHYS ---
Physician Documentation [facility] Name: Ana Maria Robin Age: 29 yrs Sex: Female : 1990 Arrival Date: 11/29/2019 Time: 22:41 Bed 15 Private MD: ED Physician Buzz Timmons HPI: 11/28 23:12 This 29 yrs old Female presents to ER via Wheelchair with complaints of pkl Constipation, Pain All Over. 23:12 The patient complains of pain in the right flank. The pain radiates to the right lower pkl quadrant. Onset: The symptoms/episode began/occurred this morning. Associated signs and symptoms: The patient has no apparent associated signs or symptoms. Historical: - Allergies: 23:11 Amoxicillin; ls4 23:11 Labetalol; ls4 23:11 PENICILLINS; ls4 23:11 Sulfa (Sulfonamide Antibiotics); ls4 - Home Meds: 23:11 Albuterol Inhl [Active]; ls4 - PMHx: 23:11 Asthma; Depression; ls4 - Immunization history:: Adult Immunizations up to date. - Social history:: Smoking status: Patient/guardian denies using tobacco, Stopped _ months ago 1. ROS: 23:12 Eyes: Negative for injury, pain, redness, and discharge, ENT: Negative for injury, pkl pain, and discharge, Neck: Negative for injury, pain, and swelling, Cardiovascular: Negative for chest pain, palpitations, and edema, Respiratory: Negative for shortness of breath, cough, wheezing, and pleuritic chest pain, Abdomen/GI: Negative for abdominal pain, nausea, vomiting, diarrhea, and constipation. 23:12 Back: Positive for flank pain, on the right. 23:12 : Positive for decrease urination. 23:12 MS/extremity: Negative for acute changes. 23:12 Skin: Negative for rash. 23:12 Neuro: Negative for altered mental status. Exam: 23:12 Head/Face: Normocephalic, atraumatic. Eyes: Pupils equal round and reactive to light, pkl extra-ocular motions intact. Lids and lashes normal. Conjunctiva and sclera are non-icteric and not injected. Cornea within normal limits. Periorbital areas with no swelling, redness, or edema. ENT: Nares patent. No nasal discharge, no septal abnormalities noted. Tympanic membranes are normal and external auditory canals are clear. Oropharynx with no redness, swelling, or masses, exudates, or evidence of obstruction, uvula midline. Mucous membranes moist. Neck: Trachea midline, no thyromegaly or masses palpated, and no cervical lymphadenopathy. Supple, full range of motion without nuchal rigidity, or vertebral point tenderness. No Meningismus. Chest/axilla: Normal chest wall appearance and motion. Nontender with no deformity. No lesions are appreciated. Cardiovascular: Regular rate and rhythm with a normal S1 and S2. No gallops, murmurs, or rubs. Normal PMI, no JVD. No pulse deficits. Respiratory: Lungs have equal breath sounds bilaterally, clear to auscultation and percussion. No rales, rhonchi or wheezes noted. No increased work of breathing, no retractions or nasal flaring. Abdomen/GI: Soft, non-tender, with normal bowel sounds. No distension or tympany. No guarding or rebound. No evidence of tenderness throughout. 23:12 Back: pain, that is moderate, of the right flank. 23:12 : decrease urination. 23:12 Musculoskeletal/extremity: Exam is negative for acute changes. 23:12 Skin: Exam negative for rash. 23:12 Neuro: Orientation: is normal, Mentation: is normal, Cranial nerves: grossly normal, Motor: is normal. Vital Signs: 22:47 BP 170 / 103; Pulse 98; Resp 26; Temp 99.0(O); Pulse Ox 99% on R/A; Weight 120.2 kg; ls4 Height 5 ft. 6 in. (167.64 cm); Pain 10/10; 23:14 BP 156 / 81; Pulse 101; Resp 24; Pulse Ox 100% on R/A; Pain 10/10; ls4 11/29 00:41 BP 128 / 69; Pulse 82; Resp 16; Temp 98.7; Pulse Ox 100% on R/A; rv 11/28 22:47 Body Mass Index 42.77 (120.20 kg, 167.64 cm) ls4 MDM: 11/28 22:46 Patient medically screened. pkl 11/29 00:23 Data reviewed: vital signs, nurses notes, lab test result(s), radiologic studies, CT pkl scan. ED course: Patient said the right flank has improved. Said she has cough and diarrhea for about 3 weeks. Discussed lab. and CT Scan results with patient. Advised to follow up with her PCP in 2 to 3 days. Patient understood instructions. 11/28 23:12 Order name: Basic Metabolic Panel; Complete Time: 00:05 pkl 11/28 23:12 Order name: CBC with Diff; Complete Time: 23:57 pkl 11/28 23:12 Order name: Creatinine for Radiology; Complete Time: 00:05 pkl 11/28 23:12 Order name: Hepatic Function; Complete Time: 00:05 pkl 11/28 23:12 Order name: Lipase; Complete Time: 00:05 pkl 11/28 23:34 Order name: Urine Dipstick--Ancillary (enter results); Complete Time: 23:57 ar5 11/28 23:12 Order name: IV Saline Lock; Complete Time: 23:51 pkl 11/28 23:12 Order name: Labs collected and sent; Complete Time: 23:51 pkl 11/28 23:12 Order name: CT Stone Protocol pk 11/28 23:34 Order name: Urine --Ancillary (enter results); Complete Time: 23:57 ar5 Administered Medications: 11/28 23:20 Drug: Zofran (Ondansetron) 4 mg Route: IVP; Site: left subclavian; ls4 23:51 Follow up: Response: No adverse reaction; Marked relief of symptoms ls4 23:24 Drug: morphine 4 mg Route: IVP; Site: left antecubital; ls4 23:51 Follow up: Response: No adverse reaction; Marked relief of symptoms ls4 23:25 Drug: NS 0.9% 1000 ml Route: IV; Rate: 1000 ml; Site: left antecubital; ls4 11/29 00:41 Follow up: IV Status: Completed infusion; IV Intake: 1000ml rv 00:40 Drug: Cipro 500 mg Route: PO; rv 00:40 Follow up: Response: Medication administered at discharge. rv Disposition: 11/30/19 00:30 Discharged to Home. Impression: Right flank pain. Bronchitis. Diarrhea. Leukocytosis. - Condition is Stable. - Prescriptions for Cipro 500 mg Oral Tablet - take 1 tablet by ORAL route every 12 hours for 7 days; 14 tablet. Guaifenesin AC 10- 100 mg/5 mL Oral Liquid - take 10 milliliters by ORAL route every 8 hours As needed; 120 milliliter. - Medication Reconciliation Form, Thank You Letter, Antibiotic Education, Prescription Opioid Use form. - Follow up: Private Physician; When: 2 - 3 days; Reason: Re-evaluation by your physician. - Problem is new. - Symptoms have improved. Signatures: Dispatcher [employer] EDKS Buzz Timmons MD MD pkl Peter Chance RN RN rv Annie Deluna RN RN ls4 Corrections: (The following items were deleted from the chart) 00:43 00:30 11/30/2019 00:30 Discharged to Home. Impression: Right flank pain. Bronchitis. rv Diarrhea. Leukocytosis. Condition is Stable. Forms are Medication Reconciliation Form, Thank You Letter, Antibiotic Education, Prescription Opioid Use. Follow up: Private Physician; When: 2 - 3 days; Reason: Re-evaluation by your physician. Problem is new. Symptoms have improved. pkl
[2019-11-30] MEDS ORDERED: CIPROFLOXACIN HCL 500 MG TAB ONE (00:42)
[2019-11-30 01:25] VITALS: O2SAT 100
[2019-11-30 01:26] VITALS: BP 128/69; TEMP 98.7
--- NOTE | 2019-11-30 11:44 | RAD REPORT ---
EXAM DESCRIPTION: CT - Stone Protocol - 11/30/2019 5:35 am CLINICAL HISTORY: The patient is 29 years old and is Female; right flank pain TECHNIQUE: Axial computed tomography images of the abdomen and pelvis without intravenous contrast. Sagittal and coronal reformatted images were created and reviewed. This CT exam was performed usi ng one or more of the following dose reduction techniques: automated exposure control, adjustment o f the mA and/or kV according to patient size, and/or use of iterative reconstruction technique. DLP: 1383 mGy*cm COMPARISON: CT abdomen and pelvis dated October 07, 2018. FINDINGS: LUNG BASES: Lung bases are clear. HEART: Visualized heart is normal. ABDOMEN: LIVER: Unremarkable. GALLBLADDER AND BILE DUCTS: Unremarkable. No calcified stones. No ductal dilation. PANCREAS: Unremarkable. No ductal dilation. SPLEEN: Unremarkable. No splenomegaly. ADRENALS: Unremarkable. No mass. KIDNEYS AND URETERS: Punctate nonobstructive stone in the interpolar left kidney. STOMACH AND BOWEL: Unremarkable. No obstruction. No mucosal thickening. PELVIS: APPENDIX: The appendix is seen and is within normal limits. BLADDER: Unremarkable. No stones. REPRODUCTIVE: Unremarkable as visualized. ABDOMEN and PELVIS: INTRAPERITONEAL SPACE: Unremarkable. No free air. No significant fluid collection. BONES/JOINTS: No acute fracture. No dislocation. SOFT TISSUES: Small fat-containing umbilical hernia. VASCULATURE: Unremarkable. No abdominal aortic aneurysm. LYMPH NODES: Unremarkable. No enlarged lymph nodes. IMPRESSION: 1. No acute abdominal or pelvic abnormality. No obstructive uropathy. 2. Punctate nonobstructive left renal stone. Electronically signed by: Sukhwinder Philip DO 11/30/2019 12:08 AM CDT Due to temporary technical issues with the PACS/Fluency reporting system, reports are being signed by the in house radiologist as a courtesy to ensure prompt reporting. The interpreting radiologist is f russellly responsible for the content of the report.
== END 2019-11-30 00:43 | disposition home or self-care (01) ==
LOC: ER 22:38
DX: R19.7 Diarrhea, unspecified (principal); D72.829 Elevated white blood cell count, unspecified; J45.909 Unspecified asthma, uncomplicated; Z88.0 Allergy status to penicillin; Z88.1 Allergy status to other antibiotic agents; Z88.2 Allergy status to sulfonamides; Z88.8 Allergy status to other drugs, medicaments and biological substances
CPT/HCPCS: 85025; 80048; 36415; 81025; 80076; 81003; 83690; 76377; 74176; 99284; J7030; J2405

== ENCOUNTER 2021-04-06 00:04 | Emergency (ER) | payer BC ==
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
[2021-04-06 00:46] LABS: Urine Blood Trace-lysed (Negative); Urine Glucose Negative (Negative); Urine Protein Negative (Negative); Urine Specific Gravity >=1.030 (1.005-1.030)
[2021-04-06 00:47] LABS: Absolute Lymphocytes (CBC) 4.8 K/uL (0.7-4.9); Basophils % 0.6 % (0-1.3); Hematocrit 40.6 % (36.0-45.0); Lymphocytes % 35.7 % (15.3-44.8); RBC Red Blood Cell Count 4.26 M/uL (3.86-4.86)
[2021-04-06 01:13] LABS: ALT/SGPT 30 U/L (12-78); AST/SGOT 14 U/L (15-37); Albumin 3.9 g/dL (3.4-5.0); Alkaline Phosphatase 74 U/L (45-117); Amylase 23 U/L (25-115); BUN Blood Urea Nitrogen 9 mg/dL (7-18); Bicarbonate 25 mmol/L (21-32); Bilirubin Direct 0.1 mg/dL (0-0.2); Bilirubin Total 0.4 mg/dL (0.2-1.0); Glucose Level 91 mg/dL (74-106); Lipase 44 U/L (73-393); Potassium 3.6 mmol/L (3.5-5.1); Protein, Total 7.8 g/dL (6.4-8.2); Sodium Level 140 mmol/L (136-145)
[2021-04-06] MEDS ORDERED: ONDANSETRON 4 MG/2 ML VIAL ONE (02:34)
[2021-04-06] MEDS ORDERED: MORPHINE 4 MG/ML SYR ONE (02:34)
[2021-04-06] MEDS ORDERED: NA CHLORIDE 0.9% 1,000 ML ONE (02:35)
--- NOTE | 2021-04-06 03:27 | ER ---
Nurse's Notes [facility] Name: Ana Maria Robin Age: 30 yrs Sex: Female : 1990 Arrival Date: 04/06/2021 Time: 00:06 Bed DX3 Private MD: Diagnosis: Back pain. Leukocytosis Presentation: 04/06 00:20 Chief complaint: Patient states: Pt stated, " I'm having back pain that started in my kg right lower back and comes around my front to my chest and shooting. I had COVID + 03/14 and the symptoms never went away. I also had my gallbladder out 03/09. Coronavirus screen: Vaccine status: Patient reports being unvaccinated. At this time, the client does not indicate any symptoms associated with coronavirus-19. Ebola Screen: Patient negative for fever greater than or equal to 101.5 degrees Fahrenheit, and additional compatible Ebola Virus Disease symptoms Patient denies exposure to infectious person. Patient denies travel to an Ebola-affected area in the 21 days before illness onset. Initial Sepsis Screen: Does the patient meet any 2 criteria? No. Patient's initial sepsis screen is negative. Does the patient have a suspected source of infection? No. Patient's initial sepsis screen is negative. Risk Assessment: Do you want to hurt yourself or someone else? Patient reports no desire to harm self or others. Onset of symptoms was April 05, 2021 at 14:00. 00:20 Method Of Arrival: Ambulatory kg 00:20 Acuity: HELADIO 3 kg Triage Assessment: 00:24 General: Appears in no apparent distress. Behavior is calm, cooperative, appropriate kg for age, quiet. Pain: Complains of pain in anterior aspect of right upper chest and right breast Pain radiates to lumbar area, right mid back and right low back. Historical: - Allergies: 00:24 Amoxicillin; kg 00:24 Labetalol; kg 00:24 PENICILLINS; kg 00:24 Sulfa (Sulfonamide Antibiotics); kg - Home Meds: 00:24 Tessalon Perles 100 mg Oral cap 1 cap 3 times per day [Active]; Albuterol Inhl [Active];kg - PMHx: 00:24 Asthma; Depression; kg - PSHx: 00:24 Cholecystectomy; section; kg - Immunization history:: Adult Immunizations up to date, Client reports having NOT received the Covid vaccine. - Social history:: Smoking status: Patient reports the use of cigarette tobacco products, Patient/guardian denies using tobacco, Stopped _ months ago 1. Screenin:00 Abuse screen: Denies threats or abuse. Nutritional screening: No deficits noted. ea Tuberculosis screening: No symptoms or risk factors identified. Fall Risk IV access (20 points). Assessment: 02:30 General: Appears uncomfortable, Behavior is appropriate for age. Pain: Denies pain. ea Neuro: Level of Consciousness is awake, alert, obeys commands, Oriented to person, place, time. Cardiovascular: Patient's skin is warm and dry. Respiratory: Airway is patent Respiratory effort is even, unlabored, Respiratory pattern is regular, symmetrical. Derm: Skin is pink, warm \\T\\ dry. 03:40 Reassessment: Patient and/or family updated on plan of care and expected duration. Pain ea level reassessed. Patient is alert, oriented x 3, equal unlabored respirations, skin warm/dry/pink. Discharge instruction given to patient verbalized the understanding of instruction. Pt left ED ambulatory tolerating well. Vital Signs: 00:20 BP 133 / 73; Pulse 104; Resp 20; Temp 99.1(O); Pulse Ox 99% on R/A; Weight 122.47 kg; kg Height 5 ft. 6 in. (167.64 cm); Pain 9/10; 03:41 BP 132 / 68; Pulse 80; Resp 18; Temp 98.6; Pulse Ox 98% ; ea 00:20 Body Mass Index 43.58 (122.47 kg, 167.64 cm) kg ED Course: 00:06 Patient arrived in ED. wm 00:24 Triage completed. kg 01:30 Buzz Timmons MD is Attending Physician. pkl 02:00 Sravani Dsouza RN is Primary Nurse. ea 02:26 CT Abd/Pelvis - IV Contrast Only In Process Unspecified. EDMS 02:26 CT Chest For PE Angio In Process Unspecified. EDMS 02:30 Arm band placed on right wrist. ea 02:30 Patient has correct armband on for positive identification. Bed in low position. Call ea light in reach. 03:43 No provider procedures requiring assistance completed. IV discontinued, intact, ea bleeding controlled, No redness/swelling at site. Pressure dressing applied. Administered Medications: 02:28 Drug: NS 0.9% 1000 ml Route: IV; Rate: 1000 ml; Site: right antecubital; ea 03:44 Follow up: IV Status: Completed infusion; IV Intake: 1000ml ea 02:28 Drug: morphine 4 mg Route: IVP; Site: right antecubital; ea 03:44 Follow up: Response: No adverse reaction ea 02:28 Drug: Zofran (Ondansetron) 4 mg Route: IVP; Site: right antecubital; ea 03:44 Follow up: Response: No adverse reaction ea Intake: 03:44 IV: 1000ml; Total: 1000ml. ea Outcome: 03:27 Discharge ordered by . melania 03:41 Discharged to home ambulatory. ea 03:41 Condition: stable 03:41 Discharge instructions given to patient, Instructed on discharge instructions, follow up and referral plans. medication usage, Demonstrated understanding of instructions, follow-up care, medications, Prescriptions given X 2. 03:43 Patient left the ED. ea Signatures: Dispatcher [employer] EDBuzz Alvarez MD MD pkl Antunez, Elena, RN RN Mouna Amaro RN RN Kristine Prieto
--- NOTE | 2021-04-06 03:27 | EDPHYS ---
Physician Documentation [facility] Name: Ana Maria Robin Age: 30 yrs Sex: Female : 1990 Arrival Date: 04/06/2021 Time: 00:06 Bed DX3 Private MD: ED Physician Buzz Timmons HPI: 04/06 02:36 This 30 yrs old Female presents to ER via Ambulatory with complaints of pkl Breathing Difficulty. 02:36 The patient presents with pain that is acute, right lower back. The pain radiates to pkl the chest. Patient had lap cholecystectomy on 03/09/21 and was diagnosed positive for Covid 19 on 03/14/21 . Historical: - Allergies: 00:24 Amoxicillin; kg 00:24 Labetalol; kg 00:24 PENICILLINS; kg 00:24 Sulfa (Sulfonamide Antibiotics); kg - Home Meds: 00:24 Tessalon Perles 100 mg Oral cap 1 cap 3 times per day [Active]; Albuterol Inhl [Active];kg - PMHx: 00:24 Asthma; Depression; kg - PSHx: 00:24 Cholecystectomy; section; kg - Immunization history:: Adult Immunizations up to date, Client reports having NOT received the Covid vaccine. - Social history:: Smoking status: Patient reports the use of cigarette tobacco products, Patient/guardian denies using tobacco, Stopped _ months ago 1. ROS: 02:36 Eyes: Negative for injury, pain, redness, and discharge, ENT: Negative for injury, pkl pain, and discharge, Neck: Negative for injury, pain, and swelling, Cardiovascular: Negative for chest pain, palpitations, and edema, Respiratory: Negative for shortness of breath, cough, wheezing, and pleuritic chest pain, Abdomen/GI: Negative for abdominal pain, nausea, vomiting, diarrhea, and constipation. 02:36 Back: Positive for pain at rest, of the right lower back. 02:36 : Negative for urinary symptoms. 02:36 MS/extremity: Negative for acute changes. 02:36 Skin: Negative for rash. 02:36 Neuro: Negative for altered mental status, loss of consciousness. Exam: 02:36 Head/Face: Normocephalic, atraumatic. Eyes: Pupils equal round and reactive to light, pkl extra-ocular motions intact. Lids and lashes normal. Conjunctiva and sclera are non-icteric and not injected. Cornea within normal limits. Periorbital areas with no swelling, redness, or edema. ENT: Nares patent. No nasal discharge, no septal abnormalities noted. Tympanic membranes are normal and external auditory canals are clear. Oropharynx with no redness, swelling, or masses, exudates, or evidence of obstruction, uvula midline. Mucous membranes moist. Neck: Trachea midline, no thyromegaly or masses palpated, and no cervical lymphadenopathy. Supple, full range of motion without nuchal rigidity, or vertebral point tenderness. No Meningismus. Chest/axilla: Normal chest wall appearance and motion. Nontender with no deformity. No lesions are appreciated. Cardiovascular: Regular rate and rhythm with a normal S1 and S2. No gallops, murmurs, or rubs. Normal PMI, no JVD. No pulse deficits. Respiratory: Lungs have equal breath sounds bilaterally, clear to auscultation and percussion. No rales, rhonchi or wheezes noted. No increased work of breathing, no retractions or nasal flaring. Abdomen/GI: Soft, non-tender, with normal bowel sounds. No distension or tympany. No guarding or rebound. No evidence of tenderness throughout. Back: No spinal tenderness. No costovertebral tenderness. Full range of motion. Skin: Warm, dry with normal turgor. Normal color with no rashes, no lesions, and no evidence of cellulitis. MS/ Extremity: Pulses equal, no cyanosis. Neurovascular intact. Full, normal range of motion. Neuro: Awake and alert, GCS 15, oriented to person, place, time, and situation. Cranial nerves II-XII grossly intact. Motor strength 5/5 in all extremities. Sensory grossly intact. Cerebellar exam normal. Normal gait. Vital Signs: 00:20 BP 133 / 73; Pulse 104; Resp 20; Temp 99.1(O); Pulse Ox 99% on R/A; Weight 122.47 kg; kg Height 5 ft. 6 in. (167.64 cm); Pain 9/10; 03:41 BP 132 / 68; Pulse 80; Resp 18; Temp 98.6; Pulse Ox 98% ; ea 00:20 Body Mass Index 43.58 (122.47 kg, 167.64 cm) kg MDM: 01:30 Patient medically screened. pkl 03:21 Data reviewed: vital signs, nurses notes, lab test result(s), radiologic studies, CT pkl scan. 03:23 ED course: Discussed lab and imaging studies with patient. Advised to follow up with pkl PCP in 2 to 3 days. Patient understood instructions. 04/06 00:33 Order name: Amylase, Serum; Complete Time: 01:48 kg 04/06 00:33 Order name: Hepatic Function; Complete Time: :48 kg 04/06 00:33 Order name: Lipase; Complete Time: :48 kg 04/06 00:33 Order name: Basic Metabolic Panel; Complete Time: 01:48 kg 04/06 00:33 Order name: CBC with Diff; Complete Time: :48 kg 04/06 00:45 Order name: Urine Dipstick-Ancillary; Complete Time: 01:48 EDMS 04/06 00:46 Order name: Urine --Ancillary (enter results); Complete Time: 01:48 wg 04/06 01:50 Order name: D-Dimer pkl 04/06 01:50 Order name: D-Dimer; Complete Time: 03:06 EDMS 04/06 01:52 Order name: COVID-19 : Document "Date of Symptom Onset" if Symptomatic. pkl 04/06 01:52 Order name: Blood Culture Adult (2) pkl 04/06 01:52 Order name: Lactate pkl 04/06 01:53 Order name: Blood Culture EDMS 04/06 00:33 Order name: IV Saline Lock; Complete Time: 00:33 kg 04/06 00:33 Order name: Labs collected and sent; Complete Time: 00:33 kg 04/06 01:52 Order name: Urine Dipstick-Ancillary (obtain specimen); Complete Time: 02:02 pkl 04/06 01:53 Order name: Lactate; Complete Time: 03:06 EDMS 04/06 01:55 Order name: CT Abd/Pelvis - IV Contrast Only pkl 04/06 01:55 Order name: CT Chest For PE Angio pkl 04/06 03:43 Order name: SARS-COV-2 RT PCR; Complete Time: 06:46 EDMS Administered Medications: 02:28 Drug: NS 0.9% 1000 ml Route: IV; Rate: 1000 ml; Site: right antecubital; ea 03:44 Follow up: IV Status: Completed infusion; IV Intake: 1000ml ea 02:28 Drug: morphine 4 mg Route: IVP; Site: right antecubital; ea 03:44 Follow up: Response: No adverse reaction ea 02:28 Drug: Zofran (Ondansetron) 4 mg Route: IVP; Site: right antecubital; ea 03:44 Follow up: Response: No adverse reaction ea Disposition Summary: 04/06/21 03:27 Discharge Ordered Location: Home pkl Problem: new pkl Symptoms: have improved pkl Condition: Stable pkl Diagnosis - Back pain. Leukocytosis pkl Followup: pkl - With: Private Physician - When: 2 - 3 days - Reason: Re-evaluation by your physician Discharge Instructions: - Discharge Summary Sheet pkl Forms: - Medication Reconciliation Form pkl - Thank You Letter pkl - Antibiotic Education pkl - Prescription Opioid Use pkl - Work release form ea Prescriptions: - Cipro 500 mg Oral Tablet - take 1 tablet by ORAL route every 12 hours for 7 days; 14 tablet; Refills: 0, pkl Product Selection Permitted - Diclofenac Sodium 75 mg Oral tablet,delayed release (DR/EC) - take 1 tablet by ORAL route 2 times per day; 20 tablet; Refills: 0, Product pkl Selection Permitted Signatures: Dispatcher [employer] Buzz Rivera MD MD pkl Sravani Dsouza RN RN Mouna Amaro RN RN kg Corrections: (The following items were deleted from the chart) 02:44 01:53 CORONAVIRUS ordered. EDNC BEATRICE
[2021-04-06 03:50] VITALS: BP 132/68; TEMP 98.6; O2SAT 98
--- NOTE | 2021-04-06 11:52 | RAD REPORT ---
EXAM DESCRIPTION: CT - Abdomen Pelvis W Contrast - 04/06/2021 6:14 am CLINICAL HISTORY: The patient is 30 years old and is Female; ABD PAIN TECHNIQUE: Axial computed tomographic angiography images of the chest with intravenous contrast. S agittal and coronal reformatted images were created and reviewed. This CT exam was performed using one or more of the following dose reduction techniques: automated exposure control, adjustment of t he mA and/or kV according to patient size, and/or use of iterative reconstruction technique. MIP re constructed images were created and reviewed. COMPARISON: No relevant prior studies available. FINDINGS: Pulmonary arteries: Contrast bolus suboptimal for detection of pulmonary embolism. Aorta: No acute findings. No thoracic aortic aneurysm. Lungs: Unremarkable. No mass. No consolidation. Pleural space: Unremarkable. No significant effusion. No pneumothorax. Heart: Unremarkable. No cardiomegaly. No significant pericardial effusion. No evidence of RV dysfunction. Bones/joints: No acute fracture. No dislocation. Soft tissues: Unremarkable. Lymph nodes: Unremarkable. No enlarged lymph nodes. * A single impression for all exams can be found at the end of this report EXAM DESCRIPTION: CT Abdomen and Pelvis With Intravenous Contrast CLINICAL HISTORY: The patient is 30 years old and is Female; ABD PAIN TECHNIQUE: Axial computed tomography images of the abdomen and pelvis with intravenous contrast. S agittal and coronal reformatted images were created and reviewed. This CT exam was performed using one or more of the following dose reduction techniques: automated exposure control, adjustment of t he mA and/or kV according to patient size, and/or use of iterative reconstruction technique. COMPARISON: CT abdomen and pelvis November 29, 2019. FINDINGS: Lung bases: Unremarkable. No mass. No consolidation. ABDOMEN: Liver: Unremarkable. No mass. Gallbladder and bile ducts: Gallbladder is surgically absent. No ductal dilation. Pancreas: Unremarkable. No mass. No ductal dilation. Spleen: Unremarkable. No splenomegaly. Adrenals: Unremarkable. No mass. Kidneys and ureters: 8mm cyst in the left kidney. ACR White Paper guidelines (Jonathan, et al. JACR 2018; 15(2):264-273) suggest no follow-up is necessary. No hydronephrosis. Stomach and bowel: Unremarkable. No obstruction. No mucosal thickening. PELVIS: Appendix: No findings to suggest acute appendicitis. Bladder: Unremarkable. No mass. Reproductive: Unremarkable as visualized. ABDOMEN and PELVIS: Intraperitoneal space: Unremarkable. No free air. No significant fluid collection. Bones/joints: No acute fracture. No dislocation. Soft tissues: Unremarkable. Vasculature: Unremarkable. No abdominal aortic aneurysm. Lymph nodes: Unremarkable. No enlarged lymph nodes. * A single impression for all exams can be found at the end of this report IMPRESSION: CT Angiography Chest With Intravenous Contrast: No evidence of pulmonary embolism. Evaluation limited by suboptimal contrast bolus. CT Abdomen and Pelvis With Intravenous Contrast: No acute findings in the abdomen or pelvis. Electronically signed by: Sarthak Wolf MD 04/06/2021 2:58 AM CDT Due to temporary technical issues with the PACS/Fluency reporting system, reports are being signed by the in house radiologist without review as a courtesy to ensure prompt reporting. The interpreting r adiologist is fully responsible for the content of the report.
== END 2021-04-06 03:43 | disposition home or self-care (01) ==
LOC: ER 00:04
DX: D72.829 Elevated white blood cell count, unspecified (principal); F32.9 Major depressive disorder, single episode, unspecified; J45.909 Unspecified asthma, uncomplicated; F17.210 Nicotine dependence, cigarettes, uncomplicated; Z86.16 Personal history of COVID-19; Z88.0 Allergy status to penicillin; Z88.1 Allergy status to other antibiotic agents; Z88.2 Allergy status to sulfonamides; Z88.8 Allergy status to other drugs, medicaments and biological substances
CPT/HCPCS: 96361; 87040 ×2; 85025; 80048; 36415; 82150; 81025; 85379; 80076; 83605; 81003; 83690; 71275; 74177; 96375; 96374; 99283; U0003; Q9967; J7030; J2405

== ENCOUNTER 2021-10-24 11:10 | Emergency (ER) | payer BC ==
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
[2021-10-24 11:38] LABS: Absolute Lymphocytes (CBC) 3.5 K/uL (0.7-4.9); Hematocrit 41.2 % (36.0-45.0); Lymphocytes % 33.7 % (15.3-44.8); MPV 6.8 fL (7.6-11.3); RBC Red Blood Cell Count 4.31 M/uL (3.86-4.86)
[2021-10-24] MEDS ORDERED: MORPHINE 4 MG/ML SYR ONE (11:42)
[2021-10-24] MEDS ORDERED: ONDANSETRON 4 MG/2 ML VIAL ONE (11:43)
[2021-10-24 11:57] LABS: BUN Blood Urea Nitrogen 10 mg/dL (7-18); Bicarbonate 25 mmol/L (21-32); Glucose Level 108 mg/dL (74-106); Potassium 4.1 mmol/L (3.5-5.1); Sodium Level 141 mmol/L (136-145)
[2021-10-24 12:05] LABS: Troponin High Sensitivity < 3.0 pg/mL (<58.9)
--- NOTE | 2021-10-24 12:07 | RAD REPORT ---
EXAM DESCRIPTION: RAD - Chest Single View - 10/24/2021 11:57 am CLINICAL HISTORY: CHEST PAIN COMPARISON: Chest Single View dated 11/26/2019; Chest Pa And Lat (2 Views) dated 11/18/2019 FINDINGS: Lines: None. Lungs: No evidence of edema or pneumonia. Pleural: No significant pleural effusions or pneumothorax. Cardiac: The heart size is within normal limits. Bones: No acute fractures. Other: IMPRESSION: No acute cardiopulmonary disease.
--- NOTE | 2021-10-24 12:40 | ER ---
Nurse's Notes [facility] Name: Ana Maria Robin Age: 31 yrs Sex: Female : 1990 Arrival Date: 10/24/2021 Time: 11:12 Bed 18 Private MD: Diagnosis: Chest pain, unspecified Presentation: 10/24 11:19 Chief complaint: Patient states: "I'm having this pain in my chest that radiates to my ab2 left arm and causes numbness." Pt c/o SOB as well. Pt stated its been going on for 4 day and she has an appt Monday with her doctor, but pain got worse. Coronavirus screen: Vaccine status: Patient reports receiving the 1st dose of the Covid vaccine. Client denies travel out of the [place] in the last 14 days. At this time, the client does not indicate any symptoms associated with coronavirus-19. Ebola Screen: Patient negative for fever greater than or equal to 101.5 degrees Fahrenheit, and additional compatible Ebola Virus Disease symptoms Patient denies exposure to infectious person. Patient denies travel to an Ebola-affected area in the 21 days before illness onset. No symptoms or risks identified at this time. Initial Sepsis Screen: Does the patient meet any 2 criteria? No. Patient's initial sepsis screen is negative. Does the patient have a suspected source of infection? No. Patient's initial sepsis screen is negative. Risk Assessment: Do you want to hurt yourself or someone else? Patient reports no desire to harm self or others. Onset of symptoms is unknown. 11:19 Method Of Arrival: Ambulatory ab2 11:19 Acuity: HELADIO 3 ab2 Triage Assessment: 11:22 General: Appears in no apparent distress. uncomfortable, Behavior is calm, cooperative, ab2 appropriate for age. Pain: Complains of pain in chest Pain radiates to left arm. Cardiovascular: Reports chest pain, shortness of breath. Respiratory: Reports shortness of breath Airway is patent Respiratory effort is even, unlabored, Respiratory pattern is regular, symmetrical. 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 - Social history:: Smoking status: Patient reports the use of cigarette tobacco products, smokes one-half pack cigarettes per day. Screenin:27 Abuse screen: Denies threats or abuse. Nutritional screening: No deficits noted. jd3 Tuberculosis screening: No symptoms or risk factors identified. Fall Risk IV access (20 points). Ambulatory Aid- None/Bed Rest/Nurse Assist (0 pts). Gait- Normal/Bed Rest/Wheelchair (0 pts) Mental Status- Oriented to own ability (0 pts). Total Cerda Fall Scale indicates No Risk (0-24 pts). Assessment: 11:24 General: Appears in no apparent distress. comfortable, Behavior is calm, cooperative, jd3 appropriate for age. Pain: Complains of pain in chest and left arm Quality of pain is described as pressure, sharp, Pain began 2-3 days ago. Neuro: Level of Consciousness is awake, alert, obeys commands, Oriented to person, place, time, situation. Cardiovascular: Capillary refill < 3 seconds Patient's skin is warm and dry. Rhythm is regular. Respiratory: Reports shortness of breath when chest pain gets worse Airway is patent Respiratory effort is even, unlabored, Respiratory pattern is regular, symmetrical. GI: No signs and/or symptoms were reported involving the gastrointestinal system. : No signs and/or symptoms were reported regarding the genitourinary system. EENT: No signs and/or symptoms were reported regarding the EENT system. Derm: Skin is intact, Skin is dry, Skin is normal, Skin temperature is warm. Musculoskeletal: Circulation, motion, and sensation intact. Range of motion: intact in all extremities. 12:24 Reassessment: Patient appears in no apparent distress at this time. Patient and/or jd3 family updated on plan of care and expected duration. Pain level reassessed. Patient is alert, oriented x 3, equal unlabored respirations, skin warm/dry/pink. Patient states feeling better. 13:08 Reassessment: Patient appears in no apparent distress at this time. Patient and/or jd3 family updated on plan of care and expected duration. Pain level reassessed. Patient is alert, oriented x 3, equal unlabored respirations, skin warm/dry/pink. Patient states feeling better. Patient states symptoms have improved. Vital Signs: 11:19 BP 158 / 74; Pulse 89; Resp 19; Temp 98.1(TE); Pulse Ox 99% on R/A; Weight 120.2 kg; ab2 Height 5 ft. 6 in. (167.64 cm); Pain 9/10; 12:24 BP 107 / 58; Pulse 87; Resp 16 S; Pulse Ox 97% on R/A; jd3 11:19 Body Mass Index 42.77 (120.20 kg, 167.64 cm) ab2 ED Course: 11:12 Patient arrived in ED. ds1 11:14 Tuan Nix NP is PHCP. pm1 11:14 Triston Rider MD is Attending Physician. pm1 11:21 Triage completed. ab2 11:22 Arm band placed on right wrist. ab2 11:24 Luis Peck RN is Primary Nurse. jd3 11:26 Patient has correct armband on for positive identification. Placed in gown. Bed in low jd3 position. Call light in reach. Side rails up X 1. traffic monitor specialist on. Pulse ox on. NIBP on. 11:27 Patient maintains SpO2 saturation greater than 95% on room air. jd3 11:30 Inserted saline lock: 20 gauge in right antecubital area, using aseptic technique. jd3 Blood collected. 11:59 XRAY Chest (1 view) In Process Unspecified. EDMS 13:07 No provider procedures requiring assistance completed. IV discontinued, intact, jd3 bleeding controlled, No redness/swelling at site. Pressure dressing applied. Administered Medications: 11:42 Drug: morphine 4 mg Route: IVP; Site: right antecubital; jd3 12:24 Follow up: Response: No adverse reaction; RASS: Alert and Calm (0) jd3 11:43 Drug: Zofran (Ondansetron) 4 mg Route: IVP; Site: right antecubital; jd3 12:24 Follow up: Response: No adverse reaction jd3 Outcome: 12:40 Discharge ordered by . pm1 13:07 Discharged to home ambulatory, with family. jd3 13:07 Condition: stable 13:07 Discharge instructions given to patient, Instructed on discharge instructions, follow up and referral plans. medication usage, Demonstrated understanding of instructions, follow-up care, medications, Prescriptions given X 1. 13:08 Patient left the ED. jd3 Signatures: Dispatcher [employer] EDOR Ariana Hager ds1 Tuan Nix NP DYE BOARDING MACHINE OPERATOR pm1 Luis Peck RN RN jd3 Duarte Luna
--- NOTE | 2021-10-24 12:40 | EDPHYS ---
Physician Documentation [facility] Name: Ana Maria Robin Age: 31 yrs Sex: Female : 1990 Arrival Date: 10/24/2021 Time: 11:12 Bed 18 Private MD: ED Physician Triston Rider HPI: 10/24 12:40 This 31 yrs old Female presents to ER via Ambulatory with complaints of Chest Pain, pm1 Numbness Of Arm - L. 12:40 The patient or guardian reports chest pain that is located primarily in the anterior pm1 aspect of left upper chest and mid-sternal area. The pain radiates to the left arm. Associated signs and symptoms: Pertinent negatives: abdominal pain, cough, diaphoresis, dizziness, headache, shortness of breath. The chest pain is described as sharp. Duration: The patient or guardian reports a single episode, that is still ongoing. Modifying factors: the symptoms are aggravated by cough, deep breath, palpation of area. Severity of pain: in the emergency department the pain is unchanged. The patient has not experienced similar symptoms in the past. The patient has not recently seen a physician. Onset 4 to 5 days ago. 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 - Social history:: Smoking status: Patient reports the use of cigarette tobacco products, smokes one-half pack cigarettes per day. ROS: 12:40 Constitutional: Negative for fever, chills, and weight loss. pm1 12:40 Respiratory: Negative for shortness of breath, cough, wheezing, and pleuritic chest pain, Abdomen/GI: Negative for abdominal pain, nausea, vomiting, diarrhea, and constipation, Back: Negative for injury and pain, MS/Extremity: Negative for injury and deformity, Skin: Negative for injury, rash, and discoloration, Neuro: Negative for headache, weakness, numbness, tingling, and seizure. 12:40 Cardiovascular: Positive for chest pain, Negative for orthopnea, palpitations. 12:40 All other systems are negative. Exam: 12:40 Constitutional: This is a well developed, well nourished patient who is awake, alert, pm1 and in no acute distress. Head/Face: Normocephalic, atraumatic. 12:40 Back: No spinal tenderness. No costovertebral tenderness. Full range of motion. Skin: Warm, dry with normal turgor. Normal color with no rashes, no lesions, and no evidence of cellulitis. MS/ Extremity: Pulses equal, no cyanosis. Neurovascular intact. Full, normal range of motion. 12:40 Chest/axilla: Palpation: tenderness, that is mild, of the anterior aspect of left upper chest and mid-sternal area, that totally reproduces the patient's complaints. 12:40 Cardiovascular: Exam negative for acute changes, Rate: normal, Rhythm: regular, Pulses: no pulse deficits are appreciated, Heart sounds: normal, normal S1and S2. 12:40 Respiratory: Exam negative for acute changes, respiratory distress, shortness of breath, Breath sounds: are clear throughout. 12:40 Abdomen/GI: Inspection: obese Palpation: abdomen is soft and non-tender, in all quadrants. 12:40 Neuro: Exam negative for acute changes, Orientation: is normal, Mentation: is normal, Motor: is normal, moves all fours. Vital Signs: 11:19 BP 158 / 74; Pulse 89; Resp 19; Temp 98.1(TE); Pulse Ox 99% on R/A; Weight 120.2 kg; ab2 Height 5 ft. 6 in. (167.64 cm); Pain 9/10; 12:24 BP 107 / 58; Pulse 87; Resp 16 S; Pulse Ox 97% on R/A; jd3 11:19 Body Mass Index 42.77 (120.20 kg, 167.64 cm) ab2 MDM: 11:20 Patient medically screened. pm1 12:39 Data reviewed: vital signs. Data interpreted: Pulse oximetry: on room air is 97 %. pm1 Interpretation: normal. 12:39 Counseling: I had a detailed discussion with the patient and/or guardian regarding: the pm1 historical points, exam findings, and any diagnostic results supporting the discharge/admit diagnosis, lab results, radiology results, the need for outpatient follow up, to return to the emergency department if symptoms worsen or persist or if there are any questions or concerns that arise at home. 10/24 11:25 Order name: Basic Metabolic Panel; Complete Time: 12: pm10/24 11:25 Order name: CBC with Diff; Complete Time: 11:40 pm1 10/24 11:25 Order name: Troponin HS; Complete Time: 12: pm10/24 11:25 Order name: XRAY Chest (1 view); Complete Time: 12: pm10/24 11:25 Order name: EKG; Complete Time: 11: pm10/24 11:25 Order name: Cardiac monitoring; Complete Time: 11: pm10/24 11:25 Order name: EKG - Nurse/Tech; Complete Time: 11: pm10/24 11:25 Order name: IV Saline Lock; Complete Time: 11: pm10/24 11:25 Order name: Labs collected and sent; Complete Time: 11: pm10/24 11:25 Order name: O2 Per Protocol; Complete Time: 11: pm10/24 11:25 Order name: O2 Sat Monitoring; Complete Time: 11: pm Administered Medications: 11:42 Drug: morphine 4 mg Route: IVP; Site: right antecubital; jd3 12:24 Follow up: Response: No adverse reaction; RASS: Alert and Calm (0) jd3 11:43 Drug: Zofran (Ondansetron) 4 mg Route: IVP; Site: right antecubital; jd3 12:24 Follow up: Response: No adverse reaction jd3 Disposition Summary: 10/24/21 12:40 Discharge Ordered Location: Home pm1 Problem: new pm1 Symptoms: have improved pm1 Condition: Stable pm1 Diagnosis - Chest pain, unspecified pm1 Followup: pm1 - With: Emergency Department - When: As needed - Reason: Worsening of condition Followup: pm1 - With: Private Physician - When: 2 - 3 days - Reason: Recheck today's complaints, Continuance of care, Re-evaluation by your physician Discharge Instructions: - Discharge Summary Sheet pm1 - Nonspecific Chest Pain, Adult pm1 - Chest Wall Pain pm1 Forms: - Medication Reconciliation Form pm1 - Thank You Letter pm1 - Antibiotic Education pm1 - Prescription Opioid Use pm1 Prescriptions: - Cyclobenzaprine 10 mg Oral Tablet - take 1 tablet by ORAL route every 8 hours As needed; 30 tablet; Refills: 0, pm1 Product Selection Permitted Addendum: 10/27/2021 07:13 Co-signature as Attending Physician, Triston Rider MD I agree with the assessment and c brennan plan of care. Signatures: Dispatcher [employer] Triston Kaur MD MD cha Marinas, Patrick, NEWS AGENT NEWS AGENT pm1 Luis Peck RN RN jDuarte Muniz ab2
[2021-10-24 13:20] VITALS: TEMP 98.1
[2021-10-24 13:22] VITALS: BP 107/58; O2SAT 97
--- NOTE | 2021-10-25 09:27 | EKG ---
Test Date: 2021-10-24 Test Time: 11:23:40 Senior Statistician: ZAIDA MEASUREMENT RESULTS: Intervals: Rate: 89 ND: 140 QRSD: 76 QT: 344 QTc: 418 [place]: P: 54 ND: 140 QRS: 52 T: 5 INTERPRETIVE STATEMENTS: Normal sinus rhythm Nonspecific T wave abnormality Abnormal ECG Compared to ECG 11/26/2019 15:40:04 No significant changes Electronically Signed On 10-25-21 09:25:51 CDT by Enmanuel Webster
== END 2021-10-24 13:08 | disposition home or self-care (01) ==
LOC: ER 11:10
DX: R07.9 Chest pain, unspecified (principal); J45.909 Unspecified asthma, uncomplicated; F41.8 Other specified anxiety disorders; Z88.0 Allergy status to penicillin; Z88.1 Allergy status to other antibiotic agents; Z88.2 Allergy status to sulfonamides; F17.210 Nicotine dependence, cigarettes, uncomplicated
CPT/HCPCS: 93005; 85025; 80048; 36415; 84484; 71045; 96375; 96374; 99285; J2405

== ENCOUNTER 2022-03-20 14:03 | Emergency (ER) | payer BC ==
--- OUTSIDE RECORDS SUMMARY | 2022-03-20 14:08 | XMS REPORT | Continuity of Care Document ---
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 Brandon AVILANAA [facility] [id number] Univers 12:20:00 12:20:00 , DENNY naina martel [facility] Results Test Description Test Time Test Comments Results Result Comments Source COMP. METABOLIC PANEL (58782) 2022-03-19 14:14:07 Test Item Value Reference Range Interpretation Comme nts NA (test code = 5177487710) 138 mmol/L 135-145 K (test code = 7428830200) 4.2 mmol/L 3.5-5 CL (test code = 2875010597) 108 mmol/L 98-108 CO2 TOTAL (test code = 5705715921) 21 mmol/L 23-31 L AGAP (test code = 9469060405) 2-16 BUN (test code = 9502195800) 10 mg/dL 7-23 GLUCOSE (test code = 7448402289) 143 mg/dL 70-110 H CREATININE (test code = 0.57 mg/dL 0.5-1.04 3060708188) TOTAL BILI (test code = 0.5 mg/dL 0.1-1.6 7750841835) CALCIUM (test code = 3830975296) 9.0 mg/dL 8.6-10.6 T PROTEIN (test code = 7977434466) 7.0 g/dL 6.3-8.2 ALBUMIN (test code = 6607932200) 4.4 g/dL 3.5-5 ALK PHOS (test code = 9489596650) 71 U/L 34-122 ALTv (test code = 1742-6) 23 U/L 5-35 AST(SGOT) (test code = 0167373377) 21 U/L 13-40 eGFR (test code = 6850959889) mL/min/1.73m2 SCOTT (test code = SCOTT) Association of Glomerular Filtration Rate (GFR) and Staging of Kidney Disease* + +-------- + ------+| GFR (mL/min/1.73 m2) ?| With Kidney Damage ?| ?Without Kidney Damage+ +-- + +| ?>90 ?| ?Stage one ?| ? Normal ?+ +------- + -------+| ?60-89 ?| ?Stage two ?| ? Decreased GFR ? + +-------- + ------+| ?30-59 ?| ?Stage three ?| ? Stage three ? + +-------- + ------+| ?15-29 ?| ?Stage four ? | ? Stage four ?+ +------- + -------+| ?<15 (or dialysis) ? ?| ?Stage five ? | ? Stage five ?+ +------- + -------+ *Each stage assumes the associated GFR [...] or abnormalities in imaging tests). Lab Interpretation (test code = Abnormal 89107-3) [facility] 14[facility]13:52 Test Item Value Reference Range Interpretation Comments LIPASE (test code = 8129307854) 28 U/L 0-220 Lab Interpretation (test code = Normal 72539-0) [facility] WITH [id number] 14:02:48 Test Item Value Reference Range Interpretation Comments WBC (test code = See_Comment [Automated 0790-2) message] The sy stem which generated this result transmitted reference range : 4.30 - 11.10 10*3/?L. The reference range was not used to interpret this result as normal/abnormal . RBC (test code = See_Comment [Automated 732-8) message] The sy stem which generated this result transmitted reference range : 3.93 - 5.25 10*6/?L. The reference range was not used to interpret this result as normal/abnormal . HGB (test code = 14.3 g/dL 11.6-15 718-7) HCT (test code = 41.9 % 35.7-45.2 4544-3) MCV (test code = 95.0 fL 80.6-95.5 787-2) MCH (test code = 32.4 pg 25.9-32.8 785-6) MCHC (test code = 34.1 g/dL 31.6-35.1 786-4) RDW-SD (test code = 42.5 fL 39-49.9 16558-0) RDW-CV (test code = 12.2 % 12-15.5 788-0) PLT (test code = See_Comment [Automated 517-3) message] The sy stem which generated this result transmitted reference range : 166 - 358 10*3/ ?L. The reference r guanakito was not used to interpret this result as normal/abnormal . MPV (test code = 8.5 fL 9.5-12.9 L 43858-9) NRBC/100 WBC (test See_Comment [Automat ed code = 0621383556) message] The system which generated this result transmitted reference range : 0.0 - 10.0 /100 WBCs. The refer ence range was not u sed to interpret th is result as normal/abnormal . NRBC x10^3 (test code See_Comment [Auto mated = 5104132738) message] The s ystem which generated this result transmitted reference range : 10*3/?L. The reference range was not used to interpret this result as normal/abnormal . GRAN MAT (NEUT) % 66.4 % (test code = 770-8) IMM GRAN % (test code 0.30 % = 2762779311) LYMPH % (test code = 27.1 % 736-9) MONO % (test code = 5.3 % 5905-5) EOS % (test code = 0.8 % 713-8) BASO % (test code = 0.1 % 706-2) GRAN MAT x10^3(ANC) 7.05 10*3/uL 1.88-7.09 (test code = 5612924166) IMM GRAN x10^3 (test 0.03 10*3/uL 0-0.06 code = 3124410614) LYMPH x10^3 (test code 2.87 10*3/uL 1.32-3.29 = 731-0) MONO x10^3 (test code 0.56 10*3/uL 0.33-0.92 = 742-7) EOS x10^3 (test code = 0.08 10*3/uL 0.03-0.39 711-2) BASO x10^3 (test code 0.01-0.07 = 704-7) Lab Interpretation Abnormal (test code = 33322-8) [facility] [id number] 13:38:00 Test Item Value Reference Range Interpretation Comments POCT PREG (test code = 1605) NEGATIVE On board controls acceptable with present C Line (test code = 3574) POCT PREG LOT # (test code = 3575) [id number] POCT PREG TEST DATE (test 06/29/2023 code = 3576) Lab Interpretation (test code = Normal 98254-5) [facility] [id number] 04:16:59 Test Item Value Reference Interpretation Comments Range TROPONIN I (test 0.001 ng/mL See_Comment [Automated code = 7012160502) message] The system which generated this result [...] biotin. Lab Interpretation Normal (test code = 60269-4) [facility] [id number] 04:16:59 Test Item Value Reference Interpretation Comments Range TROPONIN I (test 0.001 ng/mL See_Comment [Automated code = 4626557439) message] The system which generated this result [...] biotin. Lab Interpretation Normal (test code = 94219-4) [facility] WITH [id number] 02:33:51 Test Item Value Reference Range Interpretation Comments WBC (test code = See_Comment H [Automated 9690-2) message] The sy stem which generated this [...] RDW-SD (test code = 42.6 fL 39.0-49.9 67775-8) RDW-CV (test code = 12.3 % 12.0-15.5 788-0) PLT (test code = See_Comment [Automated 777-3) message] The sy stem which generated this result transmitted reference range : 166 - 358 10*3/ ?L. The reference r guanakito was not used to interpret this result as normal/abnormal . MPV (test code = 9.0 fL 9.5-12.9 L 08393-7) NRBC/100 WBC (test See_Comment [Automat ed code = 5824725981) message] The system which generated this result transmitted reference range : 0.0 - 10.0 /100 WBCs. The refer ence range was not u sed to interpret th is result as normal/abnormal . NRBC x10^3 (test code <0.01 See_Comment [Auto mated = 5086472964) message] The s ystem which generated this result transmitted reference range : 10*3/?L. The reference range was not used to interpret this result as normal/abnormal . GRAN MAT (NEUT) % 56.7 % (test code = 770-8) IMM GRAN % (test code 0.50 % = 2729995586) LYMPH % (test code = 36.8 % 736-9) MONO % (test code = 5.0 % 5905-5) EOS % (test code = 0.8 % 713-8) BASO % (test code = 0.2 % 706-2) GRAN MAT x10^3(ANC) 7.49 10*3/uL 1.88-7.09 H (test code = 7106407120) IMM GRAN x10^3 (test 0.06 10*3/uL 0.00-0.06 code = 8401829047) LYMPH x10^3 (test code 4.87 10*3/uL 1.32-3.29 H = 731-0) MONO x10^3 (test code 0.66 10*3/uL 0.33-0.92 = 742-7) EOS x10^3 (test code = 0.11 10*3/uL 0.03-0.39 711-2) BASO x10^3 (test code 0.03 10*3/uL 0.01-0.07 = 704-7) Lab Interpretation Abnormal (test code = 72725-2) [facility] WITH [id number] 02:33:51 Test Item Value Reference Range Interpretation Comments WBC (test code = See_Comment H [Automated 0448-2) message] The sy stem which generated this result transmitted reference range : 4.30 - 11.10 10*3/?L. The reference range was not used to interpret this result as normal/abnormal . RBC (test code = See_Comment [Automated 341-8) message] The sy stem which generated this [...] RDW-SD (test code = 42.6 fL 39.0-49.9 52644-3) RDW-CV (test code = 12.3 % 12.0-15.5 788-0) PLT (test code = See_Comment [Automated 777-3) message] The sy stem which generated this result transmitted reference range : 166 - 358 10*3/ ?L. The reference r guanakito was not used to interpret this result as normal/abnormal . MPV (test code = 9.0 fL 9.5-12.9 L 94187-3) NRBC/100 WBC (test See_Comment [Automat ed code = 4087395889) message] The system which generated this result transmitted reference range : 0.0 - 10.0 /100 WBCs. The refer ence range was not u sed to interpret th is result as normal/abnormal . NRBC x10^3 (test code <0.01 See_Comment [Auto mated = 6608910348) message] The s ystem which generated this result transmitted reference range : 10*3/?L. The reference range was not used to interpret this result as normal/abnormal . GRAN MAT (NEUT) % 56.7 % (test code = 770-8) IMM GRAN % (test code 0.50 % = 4611301527) LYMPH % (test code = 36.8 % 736-9) MONO % (test code = 5.0 % 5905-5) EOS % (test code = 0.8 % 713-8) BASO % (test code = 0.2 % 706-2) GRAN MAT x10^3(ANC) 7.49 10*3/uL 1.88-7.09 H (test code = 2279289058) IMM GRAN x10^3 (test 0.06 10*3/uL 0.00-0.06 code = 3768133320) LYMPH x10^3 (test code 4.87 10*3/uL 1.32-3.29 H = 731-0) MONO x10^3 (test code 0.66 10*3/uL 0.33-0.92 = 742-7) EOS x10^3 (test code = 0.11 10*3/uL 0.03-0.39 711-2) BASO x10^3 (test code 0.03 10*3/uL 0.01-0.07 = 704-7) Lab Interpretation Abnormal (test code = 91429-7) [facility] [id number] 02:15:25 Test Item Value Reference Interpretation Comments Range TROPONIN I (test 0.003 ng/mL See_Comment [Automated code = 9981776755) message] The system which generated this result [...] biotin. Lab Interpretation Normal (test code = 54170-5) [facility] [id number] 02:15:25 Test Item Value Reference Interpretation Comments Range TROPONIN I (test 0.003 ng/mL See_Comment [Automated code = 5197071666) message] The system which generated this result [...] biotin. Lab Interpretation Normal (test code = 65375-6) [facility]. METABOLIC PANEL (20873)2021-10-19 02:04:26 Test Item Value Reference Range Interpretation Comments NA (test code = 137 mmol/L 135-145 5102220553) K (test code = 4.4 mmol/L 3.5-5.0 8964080739) CL (test code = 106 mmol/L 98-108 7619096144) CO2 TOTAL (test code = 20 mmol/L 23-31 L 7759341547) AGAP (test code = 2-16 2029117695) BUN (test code = 13 mg/dL 7-23 5248529646) GLUCOSE (test code = 88 mg/dL 70-110 8806710765) CREATININE (test code = 0.47 mg/dL 0.50-1.04 L 3170740017) TOTAL BILI (test code = 0.7 mg/dL 0.1-1.4 1712625069) CALCIUM (test code = 9.2 mg/dL 8.6-10.6 9140843342) T PROTEIN (test code = 7.7 g/dL 6.3-8.2 2209901775) ALBUMIN (test code = 4.7 g/dL 3.5-5.0 1095485752) ALK PHOS (test code = 60 U/L 34-122 1870032507) ALTv (test code = 24 U/L 5-35 1742-6) AST(SGOT) (test code = 27 U/L 13-40 1017795611) eGFR (test code = mL/min/1.73m2 5226030042) SCOTT (test code = SCOTT) Association of [...] tests). Lab Interpretation Abnormal (test code = 82136-4) [facility]. METABOLIC PANEL (05739)2021-10-19 02:04:26 Test Item Value Reference Range Interpretation Comments NA (test code = 137 mmol/L 135-145 9785965747) K (test code = 4.4 mmol/L 3.5-5.0 8532367052) CL (test code = 106 mmol/L 98-108 4277326710) CO2 TOTAL (test code = 20 mmol/L 23-31 L 1019062155) AGAP (test code = 2-16 8402037823) BUN (test code = 13 mg/dL 7-23 9631167755) GLUCOSE (test code = 88 mg/dL 70-110 3196417825) CREATININE (test code = 0.47 mg/dL 0.50-1.04 L 8044986441) TOTAL BILI (test code = 0.7 mg/dL 0.1-1.0 1042701990) CALCIUM (test code = 9.2 mg/dL 8.6-10.6 4940960738) T PROTEIN (test code = 7.7 g/dL 6.3-8.2 1551119983) ALBUMIN (test code = 4.7 g/dL 3.5-5.0 9433693267) ALK PHOS (test code = 60 U/L 34-122 6068024187) ALTv (test code = 24 U/L 5-35 2-6) AST(SGOT) (test code = 27 U/L 13-40 3326356157) eGFR (test code = mL/min/1.73m2 4148889682) SCOTT (test code = SCOTT) Association of [...] tests). Lab Interpretation Abnormal (test code = 86699-7) [facility] 02:03:45 Test Item Value Reference Range Interpretation Comments LIPASE (test code = 7546727181) 35 U/L 0-220 Lab Interpretation (test code = Normal 04480-9) [facility] 02:03:45 Test Item Value Reference Range Interpretation Comments LIPASE (test code = 5294011654) 35 U/L 0-220 Lab Interpretation (test code = Normal 69382-9) [facility] [id number] 01:51:00 Test Item Value Reference Range Interpretation Comments POCT PREG (test code = 1605) negative On board controls acceptable with present C Line (test code = 3574) POCT PREG LOT # (test code = 3575) [id number] POCT PREG TEST DATE (test 09/27/2022 code = 3576) Lab Interpretation (test code = Normal 02075-2) [facility] [id number] 01:51:00 Test Item Value Reference Range Interpretation Comments POCT PREG (test code = 1605) negative On board controls acceptable with present C Line (test code = 3574) POCT PREG LOT # (test code = 3575) [id number] POCT PREG TEST DATE (test 09/27/2022 code = 3576) Lab Interpretation (test code = Normal 40009-8) [facility]"
[2022-03-20 15:10] LABS: Urine Blood 1+ (Negative); Urine Glucose Negative (Negative); Urine Protein Negative (Negative); Urine Specific Gravity >=1.030 (1.005-1.030)
[2022-03-20 15:16] LABS: Absolute Lymphocytes (CBC) 4.4 K/uL (0.7-4.9); Hematocrit 39.8 % (36.0-45.0); Lymphocytes % 38.5 % (15.3-44.8); MCV 93.7 fL (80-100); MPV 6.6 fL (7.6-11.3); RBC Red Blood Cell Count 4.24 M/uL (3.86-4.86)
[2022-03-20 15:34] LABS: Albumin 3.8 g/dL (3.4-5.0); Bilirubin Total 0.8 mg/dL (0.2-1.0); Potassium 3.5 mmol/L (3.5-5.1); Protein, Total 7.6 g/dL (6.4-8.2)
[2022-03-20 16:34] LABS: Urine Bacteria >50 /HPF (<20); Urine RBC <5 /HPF (None Seen)
--- NOTE | 2022-03-20 16:49 | EDPHYS ---
Physician Documentation [facility] Name: Ana Maria Robin Age: 31 yrs Sex: Female : 1990 Arrival Date: 03/20/2022 Time: 14:04 Bed 11 Private MD: ED Physician Ashley Cunningham HPI: 03/20 23:41 This 31 yrs old Female presents to ER via Ambulatory with complaints of Abdominal Pain. kb 23:41 The patient presents with abdominal pain suprapubic. Onset: The symptoms/episode kb began/occurred today. The symptoms radiate to right lower quadrant and left lower quadrant. Associated signs and symptoms: Pertinent positives: nausea, dark urine. The symptoms are described as constant. Modifying factors: The symptoms are alleviated by nothing, the symptoms are aggravated by pressure. Severity of pain: At its worst the pain was moderate in the emergency department the pain is unchanged. The patient has not experienced similar symptoms in the past. The patient has not recently seen a physician. Patient reports suprapubic pain and dark urine. States pain radiates to right and left lower quadrants.. 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 - Social history:: Smoking status: Patient reports the use of cigarette tobacco products, smokes one-half pack cigarettes per day. ROS: 23:42 Constitutional: Negative for fever, chills, and weight loss. kb 23:42 Abdomen/GI: Positive for abdominal pain, nausea, Negative for diarrhea. 23:42 : Positive for dark urine. 23:42 All other systems are negative. Exam: 23:42 Constitutional: This is a well developed, well nourished patient who is awake, alert, kb and in no acute distress. Head/Face: Normocephalic, atraumatic. ENT: Moist Mucous membranes Cardiovascular: Regular rate and rhythm with a normal S1 and S2. No gallops, murmurs, or rubs. No pulse deficits. Respiratory: Respirations even and unlabored. No increased work of breathing. Talking in full sentences Skin: Warm, dry with normal turgor. Normal color. MS/ Extremity: Pulses equal, no cyanosis. Neurovascular intact. Full, normal range of motion. Neuro: Awake and alert, GCS 15, oriented to person, place, time, and situation. Moves all extremities. Normal gait. Psych: Awake, alert, with orientation to person, place and time. Behavior, mood, and affect are within normal limits. 23:42 Abdomen/GI: Inspection: abdomen appears normal, Bowel sounds: normal, Palpation: soft, in all quadrants, moderate abdominal tenderness, in the suprapubic area. Vital Signs: 14:26 BP 141 / 80; Pulse 89; Resp 18; Temp 97.8; Pulse Ox 100% on R/A; Weight 120.2 kg; iw Height 5 ft. 6 in. (167.64 cm); Pain 10/10; 14:26 Body Mass Index 42.77 (120.20 kg, 167.64 cm) iw MDM: 14:45 Patient medically screened. kb 16:47 Data reviewed: vital signs, nurses notes. Data interpreted: Pulse oximetry: on room air kb is 100 %. Interpretation: normal. Counseling: I had a detailed discussion with the patient and/or guardian regarding: the historical points, exam findings, and any diagnostic results supporting the discharge/admit diagnosis, lab results, the need for outpatient follow up, a family practitioner, to return to the emergency department if symptoms worsen or persist or if there are any questions or concerns that arise at home. 03/20 14:30 Order name: CBC with Diff; Complete Time: 15:17 iw 03/20 14:30 Order name: CMP; Complete Time: 15:37 iw 03/20 14:30 Order name: Lipase; Complete Time: 15:37 iw 03/20 15:10 Order name: Urine Dipstick-Ancillary; Complete Time: 15:17 EDMS 03/20 15:16 Order name: Urine --Ancillary (enter results) eb 03/20 15:37 Order name: Urine Microscopic Only; Complete Time: 16:41 kb 03/20 14:30 Order name: IV Saline Lock; Complete Time: 15:17 iw 03/20 14:30 Order name: Labs collected and sent; Complete Time: 15:17 iw 03/20 14:30 Order name: Urine Dipstick-Ancillary (obtain specimen); Complete Time: 15:17 03/20 14:30 Order name: Urine Test (obtain specimen); Complete Time: 15:17 03/20 16:38 Order name: Urine Culture EDMS Administered Medications: 16:50 Drug: Macrobid (nitrofurantoin) 100 mg Route: PO; 17:01 Follow up: Response: Medication administered at discharge. Disposition: 19:09 STAFF ATTESTATION STATEMENT: I was immediately available onsite in the emergency sd2 department for consultation in the care of this patient. I did not see or examine this patient. Ashley Cunningham MD. Disposition Summary: 03/20/22 16:48 Discharge Ordered Location: Home kb Condition: Stable kb Diagnosis - UTI/ Urinary tract infection, site not specified kb Followup: kb - With: Emergency Department - When: As needed - Reason: Worsening of condition Followup: kb - With: Private Physician - When: 2 - 3 days - Reason: Recheck today's complaints, Continuance of care, Re-evaluation by your physician Discharge Instructions: - Discharge Summary Sheet kb - Urinary Tract Infection, Adult, [id number] kb Forms: - Medication Reconciliation Form kb - Thank You Letter kb - Antibiotic Education kb - Prescription Opioid Use kb Prescriptions: - Macrobid 100 mg Oral Capsule - take 1 capsule by ORAL route every 12 hours for 10 days; 20 capsule; Refills: kb 0, Product Selection Permitted Signatures: Dispatcher [employer] EDKY Angela Dominguez FNP-C FNP-Ckb Williams, Irene, RN RN Heather De Jesus, RN RN Ashley Cunningham MD MD id2
--- NOTE | 2022-03-20 16:49 | ER ---
Nurse's Notes [facility] Name: Ana Maria Robin Age: 31 yrs Sex: Female : 1990 Arrival Date: 03/20/2022 Time: 14:04 Bed 11 Private MD: Diagnosis: UTI/ Urinary tract infection, site not specified Presentation: 03/20 14:26 Chief complaint: Patient states: having really bad pressure pains toward my pelvic , on iw both sides, reports dark colored urine but no pain or burning with it, +vomiting since yesterday has not kept anything down since yesterday. Coronavirus screen: Client presents with at least one sign or symptom that may indicate coronavirus-19. Ebola Screen: Patient negative for fever greater than or equal to 101.5 degrees Fahrenheit, and additional compatible Ebola Virus Disease symptoms Patient denies exposure to infectious person. Patient denies travel to an Ebola-affected area in the 21 days before illness onset. No symptoms or risks identified at this time. Initial Sepsis Screen: Does the patient meet any 2 criteria? No. Patient's initial sepsis screen is negative. Does the patient have a suspected source of infection? No. Patient's initial sepsis screen is negative. Risk Assessment: Do you want to hurt yourself or someone else? Patient reports no desire to harm self or others. Onset of symptoms was March 19, 2022. 14:26 Method Of Arrival: Ambulatory 14:26 Acuity: HELADIO 3 iw [facility]: 14:29 LMP 02/25/2022 iw Historical: - Allergies: 14:28 Amoxicillin; iw 14:28 Labetalol; iw 14:28 PENICILLINS; iw 14:28 Sulfa (Sulfonamide Antibiotics); iw - Home Meds: 14:28 None [Active]; iw - PMHx: 14:28 Anxiety; Asthma; Depression; iw - PSHx: 14:28 section; Cholecystectomy; iw - Immunization history:: Client reports receiving the 2nd dose of the Covid vaccine. - Social history:: Smoking status: Patient reports the use of cigarette tobacco products, smokes one-half pack cigarettes per day. Screenin:18 Abuse screen: Denies threats or abuse. Denies injuries from another. Nutritional hb screening: No deficits noted. Tuberculosis screening: No symptoms or risk factors identified. Fall Risk None identified. Assessment: 15:18 General: Appears in no apparent distress. Behavior is calm, cooperative. Pain: Pain hb currently is 7 out of 10 on a pain scale. Neuro: Level of Consciousness is awake, alert, obeys commands, Oriented to person, place, time, situation. Cardiovascular: Patient's skin is warm and dry. Respiratory: Respiratory effort is even, unlabored, Respiratory pattern is regular, symmetrical. GI: Reports lower abdominal pain, nausea. : No signs and/or symptoms were reported regarding the genitourinary system. EENT: No signs and/or symptoms were reported regarding the EENT system. Derm: Skin is pink, warm \T\ dry. Musculoskeletal: No signs and/or symptoms reported regarding the musculoskeletal system. 16:45 Reassessment: Patient appears in no apparent distress at this time. Patient and/or hb family updated on plan of care and expected duration. Pain level reassessed. Patient is alert, oriented x 3, equal unlabored respirations, skin warm/dry/pink. Vital Signs: 14:26 BP 141 / 80; Pulse 89; Resp 18; Temp 97.8; Pulse Ox 100% on R/A; Weight 120.2 kg; iw Height 5 ft. 6 in. (167.64 cm); Pain 10/10; 14:26 Body Mass Index 42.77 (120.20 kg, 167.64 cm) iw ED Course: 14:04 Patient arrived in ED. as 14:15 Angela Dominguez F[facility]-C [facility]. kb 14:15 Ashley Cunningham MD is Attending Physician. kb 14:28 Triage completed. iw 14:29 Arm band placed on. iw 14:48 Heather De Jesus, RN is Primary Nurse. hb 15:04 Inserted saline lock: 22 gauge in right wrist, using aseptic technique. Blood collected.hb 15:18 Patient has correct armband on for positive identification. hb 17:02 No provider procedures requiring assistance completed. IV discontinued, intact, hb bleeding controlled, No redness/swelling at site. Administered Medications: 16:50 Drug: Macrobid (nitrofurantoin) 100 mg Route: PO; hb 17:01 Follow up: Response: Medication administered at discharge. hb Medication: 15:18 VIS not applicable for this client. hb Outcome: 16:48 Discharge ordered by . kb 17:01 Discharged to home ambulatory. hb 17:01 Condition: stable 17:01 Discharge instructions given to patient, Instructed on discharge instructions, follow up and referral plans. medication usage, Demonstrated understanding of instructions, follow-up care, medications, Prescriptions given X 1. 17:02 Patient left the ED. hb Signatures: Angela Dominguez, NURSERY TECHNICIAN-C THADDEUS-Marylou Gutierrez Irene, RN RN iw Heather De Jesus RN RN hb
[2022-03-20] MEDS ORDERED: NITROFURAN MACRO 100 MG CAP PO ONE (17:00)
[2022-03-20 18:03] VITALS: BP 141/80; TEMP 97.8; O2SAT 100
== END 2022-03-20 17:02 | disposition home or self-care (01) ==
LOC: ER 14:03
DX: N39.0 Urinary tract infection, site not specified (principal); F17.210 Nicotine dependence, cigarettes, uncomplicated; Z88.0 Allergy status to penicillin; Z88.1 Allergy status to other antibiotic agents; Z88.2 Allergy status to sulfonamides; Z88.8 Allergy status to other drugs, medicaments and biological substances
CPT/HCPCS: 36415; 80053; 81003; 81015; 81025; 83690; 85025; 87077; 87086; 87088; 87186; 99284

== ENCOUNTER 2025-05-13 20:27 | Emergency (ER) | payer OTHER, SELFPAY ==
[2025-05-13] MEDS ORDERED: DIPHENHYDRAMINE 50 MG/ML VIAL ONE (21:08)
[2025-05-13] MEDS ORDERED: METHYLPREDNISOLONE 125 MG INJ ONE (21:08)
[2025-05-13] MEDS ORDERED: FAMOTIDINE 20 MG/2 ML VIAL IV ONE (21:08)
[2025-05-13] MEDS ORDERED: NA CHLORIDE 0.9% 1,000 ML ONE (21:09)
--- NOTE | 2025-05-13 22:05 | EDPHYS ---
Physician Documentation [facility] Name: Ana Maria Robin Age: 34 yrs Sex: Female : 1990 Arrival Date: 05/13/2025 Time: 20:27 Bed 15 Private MD: ED Physician Roman Muñiz HPI: 05/13 20:52 This 34 yrs old Female presents to ER via Ambulatory with complaints of Allergic sb4 Reaction. 20:52 Patient states that she was stung by something about 2 hours ago on her left inner sb4 elbow. She states that it started to get red and swollen and itchy. She took Benadryl but the redness and swelling spread up her arm and is painful. She is not sure what exactly stung her as she did not get a good look at it. She knows of her drug allergies but not of any insects or environmentals. She denies any breathing difficulty. Historical: - Allergies: 20:50 Amoxicillin; dd2 20:50 Labetalol; dd2 20:50 PENICILLINS; dd2 20:50 Sulfa (Sulfonamide Antibiotics); dd2 - PMHx: 20:50 Anxiety; Asthma; Depression; Diabetes mellitus; Hypertensive disorder; dd2 - PSHx: 20:50 section; Cholecystectomy; dd2 - Immunization history:: Adult Immunizations unknown. - Infectious Disease History:: Denies. - Social history:: Smoking status: Patient reports the use of cigarette tobacco products, smokes one-half pack cigarettes per day. ROS: 20:52 Constitutional: Negative for fever, chills, and weight loss, sb4 20:52 Skin: Positive for erythema, swelling, of the left arm, 20:52 All other systems are negative, Exam: 20:52 Head/Face: Normocephalic, atraumatic. Eyes: Extra-ocular motions intact. Periorbital sb4 areas with no swelling, redness, or edema. ENT: Mucous membranes moist. Cardiovascular: Regular rate and rhythm with a normal S1 and S2. Respiratory: No increased work of breathing, no retractions or nasal flaring. Abdomen/GI: Soft, non-tender, no distension. 20:52 Constitutional: The patient appears in no acute distress, alert, awake, 20:52 Skin: urticaria, on the left arm, 22:07 Skin: injury, bite(s), superficial, of the left elbow, insect bite/sting, sb4 Vital Signs: 20:50 BP 138 / 83; Pulse 87; Resp 16; Temp 98.4; Pulse Ox 99% ; Weight 111.13 kg; Pain 8/10; dd2 21:35 BP 134 / 71; Pulse 76; Resp 18; Pulse Ox 100% on R/A; af3 22:12 BP 134 / 73; Pulse 72; Resp 18; Pulse Ox 100% on R/A; af3 22:35 BP 145 / 87; Pulse 76; Resp 18; Pulse Ox 100% on R/A; af3 20:50 Pain Scale: Adult dd2 MDM: 20:42 Medical Screening Exam initiated sb4 22:07 Data reviewed: vital signs, nurses notes, and as a result, I will discharge patient. sb4 Counseling: I had a detailed discussion with the patient and/or guardian regarding the historical points, exam findings, and any diagnostic results supporting the discharge/admit diagnosis, the need for outpatient follow up, for definitive care, to return to the emergency department if symptoms worsen or persist or if there are any questions or concerns that arise at home. 05/13 20:51 Order name: IV Start; Complete Time: 21:06 sb4 Administered Medications: 21:23 Drug: NS 0.9% IV 1000 ml IV at 1 bolus Per protocol; to be given as a bolus over 60 af3 minutes Route: IV; Rate: 1 bolus; Site: right antecubital; 22:35 Follow up: Response: No adverse reaction; IV Status: Completed infusion; IV Intake: af3 1000ml 21:23 Drug: MethylPrednisoLONE IVP 125 mg IVP once Route: IVP; Site: right antecubital; af3 22:11 Follow up: Response: No adverse reaction af3 21:23 Drug: diphenhydrAMINE IVP 50 mg IVP once Route: IVP; Site: right antecubital; af3 22:11 Follow up: Response: No adverse reaction af3 21:23 Drug: Famotidine IVP 20 mg IVP once; dilute with 10 mL 0.9% NaCl; give over 2 minutes af3 Route: IVP; Site: right antecubital; 22:11 Follow up: Response: No adverse reaction af3 22:35 Drug: Rocephin IV 1 grams IV at calculated rate once; Given slow IV push per pharmacy af3 instructions Route: IV; Rate: calculated rate; Site: right antecubital; 22:49 Follow up: Response: No adverse reaction; IV Status: Completed infusion af3 Disposition: 22:56 Co-signature as Attending Physician, Roman CLIFFORD reviewed the patient's care tt7 provided by the Advanced Practice Provider and agree with the diagnosis and treatment plan. Disposition Summary: 05/13/25 22:04 Discharge Ordered Notes: Location: Home sb4 Problem: new sb4 Symptoms: have improved sb4 Condition: Stable sb4 Diagnosis - Insect bite (nonvenomous) of left upper arm sb4 - Urticaria, unspecified sb4 Followup: sb4 - With: Emergency Department - When: As needed - Reason: Trouble breathing, Worsening of condition Discharge Instructions: - Discharge Summary Sheet sb4 - Insect Bite, Adult, [id number] sb4 - Cellulitis, Adult, [id number]-[id number] sb4 - Rash, Adult, [id number]-[id number] sb4 - Hives, Icxr-bu-Rgjq sb4 Forms: - Antibiotic Education sb4 - Patient Portal Instructions sb4 - Leadership Thank You Letter sb4 Prescriptions: - Pepcid 20 mg Oral Tablet - take 1 tablet ORAL route every 12 hours for 5 days; 10 tablet; Refills: 0, sb4 Product Selection Permitted - Prednisone 20 mg Oral Tablet - take 1 tablet ORAL route once daily for 5 days; 5 tablet; Refills: 0, Product sb4 Selection Permitted - Doxycycline Hyclate 100 mg Oral Tablet - take 1 tablet ORAL route every 12 hours; 20 tablet; Refills: 0, Product sb4 Selection Permitted Signatures: Ryanne Clark PA-C PA-C sb4 Ana Maria Núñez RN RN af3 [facility] BARFIELD RN RN dd2 Roman Muñiz DO DO tt7
--- NOTE | 2025-05-13 22:05 | ER ---
Nurse's Notes [facility] Name: Ana Maria Robin Age: 34 yrs Sex: Female : 1990 Arrival Date: 05/13/2025 Time: 20:27 Bed 15 Private MD: Diagnosis: Insect bite (nonvenomous) of left upper arm;Urticaria, unspecified Presentation: 05/13 20:48 Chief complaint: Patient states: SHE WAS STUNG BY A BUG AND LT ARM BECAME RED, PAINFUL dd2 AND ITCHING. Coronavirus screen: At this time, the client does not indicate any symptoms associated with coronavirus-19. Ebola Screen: No symptoms or risks identified at this time. Onset: The symptoms/episode began/occurred suddenly, at 19:00. Anaphylaxis evaluation, no signs or symptoms of anaphylaxis were noted. Risk Assessment: Do you want to hurt yourself or someone else?. Onset of symptoms was 1900. 20:48 Method Of Arrival: Ambulatory dd2 20:48 Acuity: HELADIO 3 dd2 20:50 Initial Sepsis Screen: Does the patient meet any 2 criteria? No. Patient's initial dd2 sepsis screen is negative. Does the patient have a suspected source of infection? No. Patient's initial sepsis screen is negative. Triage Assessment: 20:50 General: Appears in no apparent distress. uncomfortable, Behavior is calm, cooperative, dd2 appropriate for age. Pain: Complains of pain in left arm. Derm: Rash noted that is itchy, red, on chest and left arm Reports burning, itching, pain. Historical: - Allergies: 20:50 Amoxicillin; dd2 20:50 Labetalol; dd2 20:50 PENICILLINS; dd2 20:50 Sulfa (Sulfonamide Antibiotics); dd2 - PMHx: 20:50 Anxiety; Asthma; Depression; Diabetes mellitus; Hypertensive disorder; dd2 - PSHx: 20:50 section; Cholecystectomy; dd2 - Immunization history:: Adult Immunizations unknown. - Infectious Disease History:: Denies. - Social history:: Smoking status: Patient reports the use of cigarette tobacco products, smokes one-half pack cigarettes per day. Screenin:00 [facility] ED Fall Risk Assessment (Adult) History of falling in the last 3 months, af3 including since admission No falls in past 3 months (0 pts) Confusion or Disorientation No (0 pts) Intoxicated or Sedated No (0 pts) Impaired Gait No (0 pts) Mobility Assist Device Used No (0 pt) Altered Elimination No (0 pt) Score/Fall Risk Level 0 - 2 = Low Risk Oriented to surroundings, Maintained a safe environment, Educated pt \T\ family on fall prevention, incl call for assistance when getting out of bed. Abuse screen: Denies threats or abuse. Denies injuries from another. Nutritional screening: No deficits noted. Tuberculosis screening: No symptoms or risk factors identified. Assessment: 21:00 General: Appears in no apparent distress. comfortable, well groomed, well developed, af3 Behavior is calm, cooperative, appropriate for age. Pain: Denies pain. Neuro: Level of Consciousness is awake, alert, obeys commands, Oriented to person, place, time, situation, Appropriate for age. Cardiovascular: Patient's skin is warm and dry. Respiratory: Airway is patent Respiratory effort is even, unlabored, Respiratory pattern is regular, symmetrical. Derm: Reports burning, left arm up to the chest. 22:12 Reassessment: Patient appears in no apparent distress at this time. Patient and/or af3 family updated on plan of care and expected duration. Pain level reassessed. Patient is alert, oriented x 3, equal unlabored respirations, skin warm/dry/pink. 22:35 Reassessment: Patient appears in no apparent distress at this time. Patient and/or af3 family updated on plan of care and expected duration. Pain level reassessed. Patient is alert, oriented x 3, equal unlabored respirations, skin warm/dry/pink. 22:35 Reassessment: Discharge pending antibiotic completion. af3 Vital Signs: 20:50 BP 138 / 83; Pulse 87; Resp 16; Temp 98.4; Pulse Ox 99% ; Weight 111.13 kg; Pain 8/10; dd2 21:35 BP 134 / 71; Pulse 76; Resp 18; Pulse Ox 100% on R/A; af3 22:12 BP 134 / 73; Pulse 72; Resp 18; Pulse Ox 100% on R/A; af3 22:35 BP 145 / 87; Pulse 76; Resp 18; Pulse Ox 100% on R/A; af3 20:50 Pain Scale: Adult dd2 ED Course: 20:30 Patient arrived in ED. mr 20:40 Ryanne Clark PA-C is PHCP. sb4 20:40 Roman Muñiz DO is Attending Physician. sb4 20:50 Triage completed. dd2 20:50 Arm band placed on right wrist. dd2 20:57 Ana Maria Núñez, AVIS is Primary Nurse. af3 21:00 Patient has correct armband on for positive identification. Bed in low position. Call af3 light in reach. Provided Education on: call light use . 21:00 No provider procedures requiring assistance completed. af3 21:06 Inserted saline lock: 20 gauge in right antecubital area, using aseptic technique. af3 Blood collected. Flushed with 10 mL NS. 22:50 IV discontinued, intact, bleeding controlled, No redness/swelling at site. Pressure af3 dressing applied. Administered Medications: 21:23 Drug: NS 0.9% IV 1000 ml IV at 1 bolus Per protocol; to be given as a bolus over 60 af3 minutes Route: IV; Rate: 1 bolus; Site: right antecubital; 22:35 Follow up: Response: No adverse reaction; IV Status: Completed infusion; IV Intake: af3 1000ml 21:23 Drug: MethylPrednisoLONE IVP 125 mg IVP once Route: IVP; Site: right antecubital; af3 22:11 Follow up: Response: No adverse reaction af3 21:23 Drug: diphenhydrAMINE IVP 50 mg IVP once Route: IVP; Site: right antecubital; af3 22:11 Follow up: Response: No adverse reaction af3 21:23 Drug: Famotidine IVP 20 mg IVP once; dilute with 10 mL 0.9% NaCl; give over 2 minutes af3 Route: IVP; Site: right antecubital; 22:11 Follow up: Response: No adverse reaction af3 22:35 Drug: Rocephin IV 1 grams IV at calculated rate once; Given slow IV push per pharmacy af3 instructions Route: IV; Rate: calculated rate; Site: right antecubital; 22:49 Follow up: Response: No adverse reaction; IV Status: Completed infusion af3 Medication: 21:00 VIS not applicable for this client. af3 Intake: 22:35 IV: 1000ml; Total: 1000ml. af3 Outcome: 22:04 Discharge ordered by . sb4 22:49 Discharged to home ambulatory, af3 22:49 Condition: stable 22:49 Discharge instructions given to patient, family, Instructed on discharge instructions, follow up and referral plans. medication usage, Demonstrated understanding of instructions, follow-up care, medications, Prescriptions given X 3, 22:50 Patient left the ED. af3 Signatures: Gertrude Craven, Reg Reg Ryanne Michaels, SAILAJA MENARD sb4 Ana Maria Núñez RN RN af3 [facility] BARFIELD RN RN dd2
[2025-05-13] MEDS ORDERED: CEFTRIAXONE 1000 MG/VIAL ONE (22:18)
[2025-05-13] MEDS ORDERED: NA CHLORIDE 0.9% 100 ML ONE (22:19)
[2025-05-14 05:49] VITALS: TEMP 98.4
[2025-05-14 05:51] VITALS: O2SAT 100
[2025-05-14 05:53] VITALS: BP 145/87
== END 2025-05-13 22:50 | disposition home or self-care (01) ==
LOC: ER 20:27
DX: S50.362A Insect bite (nonvenomous) of left elbow, initial encounter (principal); L50.9 Urticaria, unspecified
CPT/HCPCS: 96361; 96374; 96375; 99284; J0696; J1200; J2919; J7030